=== PATIENT | female | born 1985 | race African-American/Black ===

== ENCOUNTER 2016-08-18 09:04 | Emergency (ER) | payer MEDICAID ==
--- NOTE | 2016-08-18 09:41 | ER Document Report ---
ED Medical Screen (RME) - General Chief Complaint: Abdominal Pain Stated Complaint: ABDOMINAL PAIN/VAGINAL BLEEDING Time Seen by Provider: 08/18/16 09:35 Notes: Patient is a 30-year-old female, LMP 07/28/16, with 4 days of RLQ pain and 3 weeks of heavy vaginal bleeding, soaking through about 12 pads a day. Right lower quadrant pain is constant in nature and is described as sharp. Denies nausea, vomiting, fevers, diarrhea, constipation or lightheadedness. PE: RLQ tenderness. Normal bowel sounds. RRR. CTAB. I have greeted and performed a rapid initial assessment of this patient. A comprehensive ED assessment and evaluation of the patient, analysis of test results and completion of the medical decision making process will be conducted by additional ED providers. TRAVEL OUTSIDE OF THE [place] IN LAST 30 DAYS: No - Related Data Allergies/Adverse Reactions: codeine phosphate [From Codeine Phosphate Soluble] Allergy (Intermediate, Verified 08/18/16 09:18) Hives penicillin V potassium [From Pen-Vee K] Allergy (Intermediate, Verified 09:18) Hives codeine [Codeine] Allergy (Unknown, Verified 08/18/16 09:18) Penicillins Allergy (Unknown, Verified 08/18/16 09:18) Past Medical History - Past Medical History Cardiac Medical History: Reports: Hx Hypertension Pulmonary Medical History: Reports: Hx Asthma, Hx Pneumonia Renal/ Medical History: Denies: Hx Peritoneal Dialysis - Immunizations Immunizations up to date: Yes Hx Diphtheria, Pertussis, Tetanus Vaccination: Yes Physical Exam - Vital signs Vitals: Temp Pulse Resp BP Pulse Ox 98.4 F 84 18 159/93 H 98 08/18/16 09:18 08/18/16 09:18 08/18/16 09:18 08/18/16 09:18 08/18/16 09:18 Course - Vital Signs Vital signs: Temp Pulse Resp BP Pulse Ox 98.4 F 84 18 159/93 H 98 08/18/16 09:18 08/18/16 09:18 08/18/16 09:18 08/18/16 09:18 08/18/16 09:18
[2016-08-18] MEDS ORDERED: KETOROLAC TROMETHAMINE INJ/PF 30 MG/1 ML SDV IV ONE (10:12)
[2016-08-18] MEDS ORDERED: KETOROLAC TROMETHAMINE 60 MG/2 ML SDV IM ONE (10:15)
--- NOTE | 2016-08-18 10:18 | ER Document Report ---
ED General - General Chief Complaint: Abdominal Pain Stated Complaint: ABDOMINAL PAIN/VAGINAL BLEEDING Time Seen by Provider: 08/18/16 09:35 Notes: This with 3 weeks of vaginal bleeding, daily, becoming heavier over the past few days and associated with clots. This is not happen before but she does have irregular periods. She is . No control. Sexually active. Associated with lower abdominal cramping right greater than left for also a couple of weeks. No fevers or chills. Yesterday she went through 12 pads. 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 TRAVEL OUTSIDE OF THE [place] IN LAST 30 DAYS: No - Related Data Allergies/Adverse Reactions: codeine phosphate [From Codeine Phosphate Soluble] Allergy (Intermediate, Verified 08/18/16 09:18) Hives penicillin V potassium [From Pen-Vee K] Allergy (Intermediate, Verified 09:18) Hives codeine [Codeine] Allergy (Unknown, Verified 08/18/16 09:18) Penicillins Allergy (Unknown, Verified 08/18/16 09:18) Past Medical History - Social History Smoking Status: Unknown if Ever Smoked Family History: Reviewed & Not Pertinent Patient has suicidal ideation: No Patient has homicidal ideation: No - Past Medical History Cardiac Medical History: Reports: Hx Hypertension Pulmonary Medical History: Reports: Hx Asthma, Hx Pneumonia Renal/ Medical History: Denies: Hx Peritoneal Dialysis - Immunizations Immunizations up to date: Yes Hx Diphtheria, Pertussis, Tetanus Vaccination: Yes Hx Pneumococcal Vaccination: 08/01/11 Review of Systems - Review of Systems Notes: GEN: Denies fever, chills, weight loss ENT: Denies sore throat, nasal discharge, ear pain EYES: Denies blurry vision, eye pain, discharge CV: Denies chest pain, palpitations, edema RESP: Denies cough, shortness of breath, wheezing GI: Denies, nausea, vomiting, diarrhea MSK: Denies joint pain/swelling, edema, SKIN: Denies rash, skin lesions LYMPH: Denies swollen glands/lymph nodes NEURO: Denies headache, focal weakness or numbness, dizziness PSYCH: Denies depression, suicidal or homicidal ideation Physical Exam - Vital signs Vitals: Temp Pulse Resp BP Pulse Ox 98.4 F 84 18 159/93 H 98 08/18/16 09:18 08/18/16 09:18 08/18/16 09:18 08/18/16 09:18 08/18/16 09:18 - Notes Notes: General: No acute distress, well-nourished. Obese. Head: Atraumatic, normocephalic ENT: Mouth normal, oropharynx moist, no exudates or tonsillar enlargement Eyes: Conjunctiva normal, pupils equal, lids normal Neck: No JVD, supple, no guarding CVS: Normal rate, regular rhythm, no murmurs Resp: No resp distress, equal and normal breath sounds bilaterally GI: Nondistended, soft, all right and left lower quadrants tenderness to palpation, no rebound or guarding Ext: No deformities, no edema, normal range of motion in upper and lower ext Skin: No rash, warm Lymphatic: No lymphadeopathy noted Neuro: Awake, alert. Face symmetric. Course - Re-evaluation Re-evalutation: 08/18/16 10:17 30-year-old obese female presents with heavy vaginal bleeding for 3 weeks with clots, normal vital signs, and a benign abdominal exam. Since she is not this is likely dysfunctional bleeding versus a hormone imbalance, but I do not believe she has critical anemia. We will get a CBC, treat her with Toradol, make sure she is not with urinalysis. 08/18/16 11:11 Patient is not significantly anemic. I will give her a single dose of Provera and asked her to take ibuprofen every 6 hours [id number]. She is stable for follow-up with her primary care provider. Given that she is not and the ultrasound would not change management analyst I do not believe it is indicated today in the emergency department. I have discussed with the patient there likely diagnosis, aftercare plan, follow-up plans and my usual and customary return precautions. They verbalized understanding of this. - Vital Signs Vital signs: Temp Pulse Resp BP Pulse Ox 98.4 F 84 18 159/93 H 98 08/18/16 09:18 08/18/16 09:18 08/18/16 09:18 08/18/16 09:18 08/18/16 09:18 - Laboratory Result Diagrams: 08/18/16 10:33 08/18/16 10:33 Laboratory results interpreted by me: 08/18/16 08/18/16 09:57 10:33 Hgb 10.0 L Hct 32.0 L MCV 70 L MCH 21.9 L MCHC 31.2 L RDW 17.4 H Urine Blood MODERATE H Discharge - Discharge Clinical Impression: Metrorrhagia Condition: Good Disposition: HOME, SELF-CARE Additional Instructions: We are not sure what is causing her vaginal bleeding but it is not causing you to be anemic. Please take ibuprofen 600 mg every 6 hours for both the pain and bleeding. Please follow-up with your family physician to inquire about hormone therapy as scheduled. Please return to the ER for dizziness weakness fainting or more than 1 pad per hour of bleeding during the day.
[2016-08-18 10:32] LABS: APPEARANCE,URINE CLEAR; BILIRUBIN,URINE NEGATIVE (NEGATIVE); GLUCOSE, URINE NEGATIVE (NEGATIVE); KETONES,URINE NEGATIVE (NEGATIVE); LEUKOCYTE ESTERASE,URINE NEGATIVE (NEGATIVE); NITRITE,URINE NEGATIVE (NEGATIVE); PROTEIN,URINE NEGATIVE (NEGATIVE); URINE SPECIFIC GRAVITY 1.002; UROBILINOGEN,URINE NEGATIVE mg/dL (<2.0)
[2016-08-18] MEDS ORDERED: MEDROXYPROGESTERONE ACET 10 MG TABLET PO ONE (10:40)
[2016-08-18 10:53] LABS: ABSOLUTE EOSINOPHILS # (AUTO) 0.2 10^3/uL (0.0-0.6); ABSOLUTE LYMPHOCYTES (AUTO) 2.7 10^3/uL (0.5-4.7); ABSOLUTE MONOCYTES (AUTO) 0.5 10^3/uL (0.1-1.4); ABSOLUTE NEUT (AUTO) 3.9 10^3/uL (1.7-8.2); BASOPHILS % (AUTO) 0.6 % (0-2); EOSINOPHILS % (AUTO) 2.9 % (0-6); LYMPHOCYTES % (AUTO) 36.6 % (13-45); MEAN CORPUSCULAR HEMOGLOBIN 21.9 pg (27.0-33.4); MEAN CORPUSCULAR HGB CONC 31.2 g/dL (32.0-36.0); MEAN CORPUSCULAR VOLUME 70 fl (80-97); MONOCYTES % (AUTO) 6.5 % (3-13); RED BLOOD COUNT 4.57 10^6/uL (3.72-5.28); RED CELL DISTRIBUTION WIDTH 17.4 % (11.5-14.0); SEGMENTED NEUTROPHILS % (AUTO) 53.4 % (42-78); WHITE BLOOD COUNT 7.3 10^3/uL (4.0-10.5)
[2016-08-18 11:10] LABS: ALANINE AMINOTRANSFERASE 40 U/L (9-52); ALKALINE PHOSPHATASE 149 U/L (38-126); ANION GAP 12 (5-19); ASPARTATE AMINO TRANSFERASE 21 U/L (14-36); BILIRUBIN,DIRECT 0.3 mg/dL (0.0-0.4); BILIRUBIN,TOTAL 0.4 mg/dL (0.2-1.3); BLOOD UREA NITROGEN 9 mg/dL (7-20); CALCIUM 9.7 mg/dL (8.4-10.2); CARBON DIOXIDE 26 mmol/L (22-30); CHLORIDE 101 mmol/L (98-107); CREATININE RESULT 0.69 mg/dL (0.52-1.25); GLUCOSE 122 mg/dL (75-110); POTASSIUM 3.6 mmol/L (3.6-5.0); SODIUM 138.9 mmol/L (137-145); TOTAL PROTEIN 7.8 g/dL (6.3-8.2)
[2016-08-18 11:40] VITALS: BP 146/98
== END 2016-08-18 11:33 | disposition home or self-care (01) ==
LOC: ER 09:04
DX: N92.1 Excessive and frequent menstruation with irregular cycle (principal); R10.30 Lower abdominal pain, unspecified; I10 Essential (primary) hypertension; E66.9 Obesity, unspecified; Z68.41 Body mass index [BMI] 40.0-44.9, adult; Z88.0 Allergy status to penicillin
CPT/HCPCS: 99284; 96372; 36415; 85025; 81025; 80053; 81001; J1885; J3490

== ENCOUNTER → 2017-03-29 | Outpatient (CLI) | payer MEDICAID ==
[2017-03-29 18:49] LABS: ABSOLUTE EOSINOPHILS # (AUTO) 0.2 10^3/uL (0.0-0.6); ABSOLUTE LYMPHOCYTES (AUTO) 2.7 10^3/uL (0.5-4.7); ABSOLUTE MONOCYTES (AUTO) 0.5 10^3/uL (0.1-1.4); ABSOLUTE NEUT (AUTO) 3.1 10^3/uL (1.7-8.2); BASOPHILS % (AUTO) 0.4 % (0-2); EOSINOPHILS % (AUTO) 3.3 % (0-6); HEMATOCRIT 33.6 % (36.0-47.0); HEMOGLOBIN 10.7 g/dL (12.0-15.5); MEAN CORPUSCULAR HEMOGLOBIN 21.3 pg (27.0-33.4); MEAN CORPUSCULAR HGB CONC 31.8 g/dL (32.0-36.0); MEAN CORPUSCULAR VOLUME 67 fl (80-97); MONOCYTES % (AUTO) 7.9 % (3-13); PLATELET COUNT 340 10^3/uL (150-450); RED BLOOD COUNT 5.01 10^6/uL (3.72-5.28); RED CELL DISTRIBUTION WIDTH 18.7 % (11.5-14.0); SEGMENTED NEUTROPHILS % (AUTO) 47.4 % (42-78); TOTAL CELLS COUNTED % (AUTO) 100 %; WHITE BLOOD COUNT 6.6 10^3/uL (4.0-10.5)
[2017-03-29 19:00] LABS: ALANINE AMINOTRANSFERASE 45 U/L (9-52); ALBUMIN 4.3 g/dL (3.5-5.0); ALKALINE PHOSPHATASE 106 U/L (38-126); ANION GAP 13 (5-19); ASPARTATE AMINO TRANSFERASE 34 U/L (14-36); BILIRUBIN,DIRECT 0.1 mg/dL (0.0-0.4); BILIRUBIN,TOTAL 0.2 mg/dL (0.2-1.3); BLOOD UREA NITROGEN 8 mg/dL (7-20); CALCIUM 9.8 mg/dL (8.4-10.2); CARBON DIOXIDE 27 mmol/L (22-30); CHLORIDE 102 mmol/L (98-107); GLUCOSE 88 mg/dL (75-110); POTASSIUM 3.4 mmol/L (3.6-5.0); SODIUM 141.6 mmol/L (137-145); TOTAL PROTEIN 7.4 g/dL (6.3-8.2)
--- NOTE | 2017-03-29 22:50 | EKG REPORT ---
SEVERITY:- NORMAL ECG - SINUS RHYTHM : Confirmed by: Candida Stephens 29-Mar-2017 22:49:22
== END ==
LOC: OD 16:43
PROVIDERS: ATTEND Nurse Practitioner Family
DX: R00.2 Palpitations (principal); E66.01 Morbid (severe) obesity due to excess calories
CPT/HCPCS: 36415; 80053; 83036; 84443; 85025; 93005; 93010

== ENCOUNTER 2017-09-20 18:48 | Emergency (ER) | payer MEDICAID ==
--- NOTE | 2017-09-20 20:26 | ER Document Report ---
ED General - General Chief Complaint: High Blood Pressure Stated Complaint: BLOOD PRESSURE PROBLEM Time Seen by Provider: 09/20/17 20:24 Mode of Arrival: Ambulatory Information source: Patient Notes: 31-year-old female with hypertension, heavy menstrual bleeding presents with complaint of elevated blood pressure and lightheadedness that occurred just prior to arrival. Patient states that her boss became concerned because the patient was sleepy. She insisted on taking the patient's blood pressure and at that time patient had a blood pressure reading of 212/184. Patient admits to being compliant with her blood pressure medication. She states she was sleepy because she has worked 7 days straight. She denies any headache, visual changes , chest pain, shortness of breath, abdominal pain. Patient does state that she has had heavy menstrual bleeding for approximately 1 month and was recently put on control. She states that she was told by her physician that this could cause an elevation in her blood pressure. TRAVEL OUTSIDE OF THE [place] IN LAST 30 DAYS: No - HPI Onset: Just prior to arrival Onset/Duration: Sudden Quality of pain: No pain Severity: None Associated symptoms: Other - lightheaded Exacerbated by: Denies Relieved by: Denies Similar symptoms previously: No Recently seen / treated by doctor: No - Related Data Allergies/Adverse Reactions: codeine phosphate [From Codeine Phosphate Soluble] Allergy (Intermediate, Verified 08/18/16 09:18) Hives penicillin V potassium [From Pen-Vee K] Allergy (Intermediate, Verified 09:18) Hives codeine [Codeine] Allergy (Unknown, Verified 08/18/16 09:18) Penicillins Allergy (Unknown, Verified 08/18/16 09:18) Past Medical History - General Information source: Patient, [facility] Records - Social History Smoking Status: Current Some Day Smoker Cigarette use (# per day): Yes - 1-2 /year Smoking Education Provided: Yes Frequency of alcohol use: Occasional Drug Abuse: None Lives with: Family, Spouse/Significant other Family History: Reviewed & Not Pertinent Patient has suicidal ideation: No Patient has homicidal ideation: No - Past Medical History Cardiac Medical History: Reports: Hx Hypertension Pulmonary Medical History: Reports: Hx Asthma, Hx Pneumonia Renal/ Medical History: Denies: Hx Peritoneal Dialysis - Immunizations Immunizations up to date: Yes Hx Diphtheria, Pertussis, Tetanus Vaccination: Yes Hx Pneumococcal Vaccination: 08/01/11 Review of Systems - Review of Systems Notes: REVIEW OF SYSTEMS: CONSTITUTIONAL : Denies fever, chills, or sweats. Denies recent illness. Denies weight loss, recent hospitalizations. EENT: Denies visual changes, eye pain. Denies nasal or sinus congestion or discharge. Denies sore throat, oral lesions, difficulty swallowing. CARDIOVASCULAR: Denies chest pain. Denies palpitations. Denies lower extremity edema. RESPIRATORY: Denies cough, cold, or chest congestion. Denies shortness of breath, wheezing. GASTROINTESTINAL: Denies abdominal pain or distention. Denies nausea, vomiting , or diarrhea. Denies blood in vomitus, stools, or per rectum. Denies black, tarry stools. Denies constipation. GENITOURINARY: Denies difficulty urinating, painful urination, frequency, blood in urine, or vaginal discharge. MUSCULOSKELETAL: Denies back or neck pain or stiffness. Denies joint pain or swelling. SKIN: Denies rash, lesions or sores. HEMATOLOGIC : Denies easy bruising or bleeding. LYMPHATIC: Denies swollen glands. NEUROLOGICAL: Denies confusion or altered mental status. Denies passing out or loss of consciousness. Denies dizziness. Denies headache. Denies weakness or paralysis. Denies problems difficulty with ambulation, slurred speech. Denies sensory loss, numbness, or tingling. Denies seizures. PSYCHIATRIC: Denies anxiety or stress. Denies depression, suicidal ideation, or homicidal ideation. Denies visual or auditory hallucinations. Physical Exam - Vital signs Vitals: Temp Pulse Resp BP Pulse Ox 99.4 F 93 20 140/84 H 97 09/20/17 19:08 09/20/17 19:08 09/20/17 19:08 09/20/17 19:08 09/20/17 19:08 - Notes Notes: PHYSICAL EXAMINATION: GENERAL: Well-appearing, well-nourished and in no acute distress. HEAD: Atraumatic, normocephalic. EYES: Pupils equal round and reactive to light, extraocular movements intact, conjunctiva are normal. ENT: Nares patent, oropharynx clear without exudates. Moist mucous membranes. NECK: Normal range of motion, supple without lymphadenopathy LUNGS: Breath sounds clear to auscultation bilaterally and equal. No wheezes rales or rhonchi. HEART: Regular rate and rhythm without murmurs ABDOMEN: Soft, nontender, nondistended abdomen. No guarding, no rebound. No masses appreciated. Female : deferred Musculoskeletal: Normal range of motion, no pitting or edema. No cyanosis. NEUROLOGICAL: Cranial nerves grossly intact. Normal speech, normal gait. Normal sensory, motor exams PSYCH: Normal mood, normal affect. SKIN: Warm, Dry, normal turgor, no rashes or lesions noted. Course - Re-evaluation Re-evalutation: 09/20/17 23:19 31-year-old female with history of hypertension presents with concern for elevated blood pressure reading prior to arrival. Patient states that at work her blood pressure was 212/184. Without intervention upon arrival patient's blood pressure was 140/84. She does have a history of high blood pressure and takes hydrochlorothiazide which she states she has been compliant with. She does report some lightheadedness which is now resolved. She currently has no complaints. I did discuss blood work and imaging with the patient who is declining at this time. Patient has an upcoming appointment with her primary care physician tomorrow. Patient provided the opportunity to ask questions, and express concerns. Discharge instructions discussed. Patient is agreeable with discharge home. Return indications explained and discussed with the patient who displays understanding. Patient encouraged to return to the emergency department immediately with any concerns. - Vital Signs Vital signs: Temp Pulse Resp BP Pulse Ox 98.5 F 93 13 134/96 H 98 09/20/17 20:42 09/20/17 20:42 09/20/17 20:42 09/20/17 20:42 09/20/17 20:42 Discharge - Discharge Clinical Impression: History of heavy vaginal bleeding, Lightheadedness Hypertension Qualifiers: Hypertension type: unspecified Qualified Code(s): I10 - Essential (primary) hypertension Condition: Good Disposition: HOME, SELF-CARE Instructions: Dizziness ([facility]), High Blood Pressure ([facility]), Hydrochlorothiazide ( [facility]) Additional Instructions: Please follow-up with your primary care physician tomorrow as we discussed. Please return to the emergency department with any concerns. Referrals: JERILYN HOLLOWAY RESAWYER [Primary Care Provider] - Follow up as needed
[2017-09-20 20:44] VITALS: BP 134/96
== END 2017-09-20 20:46 | disposition home or self-care (01) ==
LOC: ER 18:48
DX: R42 Dizziness and giddiness (principal); N93.8 Other specified abnormal uterine and vaginal bleeding; I10 Essential (primary) hypertension; F17.210 Nicotine dependence, cigarettes, uncomplicated; Z88.0 Allergy status to penicillin; Z88.6 Allergy status to analgesic agent
CPT/HCPCS: 99283

== ENCOUNTER 2018-03-20 12:56 | Emergency (ER) | payer MEDICAID ==
[2018-03-20 13:52] LABS: APPEARANCE,URINE SLIGHTLY-CLOUDY; BILIRUBIN,URINE NEGATIVE (NEGATIVE); COLOR,URINE YELLOW; GLUCOSE, URINE NEGATIVE (NEGATIVE); KETONES,URINE TRACE mg/dL (NEGATIVE); LEUKOCYTE ESTERASE,URINE NEGATIVE (NEGATIVE); NITRITE,URINE NEGATIVE (NEGATIVE); PROTEIN,URINE 30 mg/dL (NEGATIVE); URINE SPECIFIC GRAVITY 1.025
--- NOTE | 2018-03-20 14:33 | ER Document Report ---
ED GI/ - General Chief Complaint: Urinary Frequency Stated Complaint: URINATION ISSUE Time Seen by Provider: 03/20/18 14:23 Primary Care Provider: JERILYN HOLLOWAY NP [NO LOCAL MD] - Follow up as needed Mode of Arrival: Ambulatory Information source: Patient, [facility] Records, Outside Facility Records Notes: This 32-year-old female patient comes emergency room complaining of urinary frequency suprapubic pressure. She is 16 weeks . She also complains of her left ear being stopped up. She was described azithromycin on 03/08/2018. TRAVEL OUTSIDE OF THE [place] IN LAST 30 DAYS: No - Related Data Allergies/Adverse Reactions: codeine phosphate [From Codeine Phosphate Soluble] Allergy (Intermediate, Verified 08/18/16 09:18) Hives penicillin V potassium [From Pen-Vee K] Allergy (Intermediate, Verified 08/18/16 09:18) Hives codeine [Codeine] Allergy (Unknown, Verified 08/18/16 09:18) Penicillins Allergy (Unknown, Verified 08/18/16 09:18) Past Medical History - General Information source: Patient, [facility] Records, Outside Facility Records - Social History Smoking Status: Former Smoker Cigarette use (# per day): No Chew tobacco use (# tins/day): No Smoking Education Provided: No Frequency of alcohol use: None Lives with: Spouse/Significant other Family History: Reviewed & Not Pertinent - Past Medical History Cardiac Medical History: Reports: Hx Hypertension Pulmonary Medical History: Reports: Hx Asthma, Hx Pneumonia - Immunizations Immunizations up to date: Yes Hx Diphtheria, Pertussis, Tetanus Vaccination: Yes Hx Pneumococcal Vaccination: 08/01/11 Review of Systems - Review of Systems Constitutional: No symptoms reported EENT: Ear pain Cardiovascular: No symptoms reported Respiratory: No symptoms reported Gastrointestinal: No symptoms reported Genitourinary: See HPI, Frequency Female Genitourinary: - 16 weeks Musculoskeletal: No symptoms reported Skin: No symptoms reported Hematologic/Lymphatic: No symptoms reported Neurological/Psychological: No symptoms reported Physical Exam - Vital signs Vitals: Temp Pulse Resp BP Pulse Ox 98.4 F 115 H 17 146/90 H 97 03/20/18 13:15 03/20/18 13:15 03/20/18 13:15 03/20/18 13:15 03/20/18 13:15 Interpretation: Hypertensive - General General appearance: Appears well, Alert In distress: None - HEENT Head: Normocephalic, Atraumatic Eyes: Normal Pupils: PERRL External canal: Normal Tympanic membrane: Other - Right TM is a little retracted. Left TM is bulging and red with some fluid and bulging noted in the pars flaccida. Mouth/Lips: Normal Mucous membranes: Normal Pharynx: Normal Neck: Normal - Respiratory Respiratory status: No respiratory distress Breath sounds: Normal - Cardiovascular Rhythm: Regular Heart sounds: Normal auscultation Murmur: No - Abdominal Inspection: Gravid female Tenderness: Other - There is minimal suprapubic tenderness - Back Back: Normal - Extremities General upper extremity: Normal inspection General lower extremity: Normal inspection - Neurological Neuro grossly intact: Yes - Psychological Associated symptoms: Normal affect, Normal mood - Skin Skin Temperature: Warm Skin Moisture: Dry Skin Color: Normal Course - Re-evaluation Re-evalutation: 03/20/18 22:01 The examination of the left TM shows clear explanation for her symptoms of the ear feeling stopped up and uncomfortable. The urine does not suggest infection, however it will be cultured. - Vital Signs Vital signs: Temp Pulse Resp BP Pulse Ox 98.5 F 97 16 129/75 H 100 03/20/18 14:33 03/20/18 14:33 03/20/18 14:33 03/20/18 14:33 03/20/18 14:33 - Laboratory Laboratory results interpreted by me: 03/20/18 13:01 Urine Protein 30 H Urine Ketones TRACE H Urine Urobilinogen 2.0 H Urine HCG, Qual POSITIVE H Discharge - Discharge Clinical Impression: Left otitis media with effusion, Suprapubic pressure, with 16 completed weeks gestation, Urinary frequency Condition: Stable Disposition: HOME, SELF-CARE Additional Instructions: Otitis Media: You have a middle ear infection (otitis media). This is usually a complication of a cold or sore throat. The middle ear cavity becomes filled with infection. Pressure and stretching of the ear drum cause pain. Antibiotics are required. A decongestant may be recommended if you have a "runny nose." You may need anesthetic drops or other pain medication. A follow-up exam may be recommended to make sure the infection has completely cleared. If the ear begins to drain, it means the ear drum has ruptured. This will usually heal spontaneously. However, it means you should keep the ear dry until re-examined by a doctor. Call the physician or return for examination at once if there is severe headache, stiff neck, confusion, increasing fever, or dizziness. You should improve significantly within two days. If you're not better, call the doctor. Your examination shows you have fluid behind your left eardrum causing it to bulge outwardly. Try taking Sudafed and Benadryl for the congestion symptoms. If the Sudafed causes your blood pressure to go up, then stop taking it. Try using Afrin nose spray as directed to see if it will help the eustachian tube to open up and release the pressure behind the eardrum. Your urine will be cultured to see if there is any infection. Be sure you drink plenty of fluids and get plenty of rest. 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 I have greeted and performed a rapid initial assessment of this patient. A comprehensive ED assessment and evaluation of the patient, analysis of test results and completion of the medical decision making process will be conducted by additional ED providers. Prescriptions: Cephalexin Monohydrate [Keflex 500 mg Capsule] 500 mg PO QID #28 capsule Referrals: JERILYN HOLLOWAY NP [NO LOCAL MD] - Follow up as needed
[2018-03-20 14:34] VITALS: BP 129/75
== END 2018-03-20 14:39 | disposition home or self-care (01) ==
LOC: ER 12:56
DX: O26.92 Pregnancy related conditions, unspecified, second trimester (principal); R35.0 Frequency of micturition; R10.2 Pelvic and perineal pain; Z3A.16 16 weeks gestation of pregnancy; H65.92 Unspecified nonsuppurative otitis media, left ear; Z88.0 Allergy status to penicillin; Z88.6 Allergy status to analgesic agent
CPT/HCPCS: 81001; 81025; 87086; 87088; 99283

== ENCOUNTER → 2018-03-29 | Outpatient (CLI) | payer MEDICAID | LOC: OD 15:44 | PROVIDERS: ATTEND Obstetrics & Gynecology | DX: Z36.89 Encounter for other specified antenatal screening (principal) | CPT/HCPCS: 36415; 82105; 82677; 84702; 86336 ==

== ENCOUNTER 2018-04-11 08:03 | Emergency (ER) | payer MEDICAID ==
[2018-04-11] MEDS ORDERED: ASPIRIN 81 MG TABLET, CHEWABLE PO ONE (08:56)
--- NOTE | 2018-04-11 09:00 | ER Document Report ---
ED General - General Chief Complaint: Abdominal Pain Stated Complaint: ABDOMINAL PAIN Time Seen by Provider: 04/11/18 08:35 Primary Care Provider: WILLA OCHOA CNM [Primary Care Provider] - Follow up as needed Notes: 32-year-old female presents to the emergency department complaining of some right lower abdominal pain. States she feels a lump in her belly near her uterus. She has been told she had a fibroid uterus in the past. She denies any nausea vomiting denies fever chills denies vaginal bleeding or discharge denies dysuria hematuria increased urinary frequency. She rates pain is mild. Nothing really makes it better or worse. The patient is 18 weeks . She just wanted to be rechecked. Denies any falls or trauma. TRAVEL OUTSIDE OF THE [place] IN LAST 30 DAYS: No - Related Data Allergies/Adverse Reactions: codeine phosphate [From Codeine Phosphate Soluble] Allergy (Intermediate, Verified 08/18/16 09:18) Hives penicillin V potassium [From Pen-Vee K] Allergy (Intermediate, Verified 08/18/16 09:18) Hives codeine [Codeine] Allergy (Unknown, Verified 08/18/16 09:18) Penicillins Allergy (Unknown, Verified 08/18/16 09:18) Past Medical History - Social History Smoking Status: Former Smoker Family History: Reviewed & Not Pertinent Patient has suicidal ideation: No Patient has homicidal ideation: No - Past Medical History Cardiac Medical History: Reports: Hx Hypertension Pulmonary Medical History: Reports: Hx Asthma, Hx Pneumonia Renal/ Medical History: Denies: Hx Peritoneal Dialysis - Immunizations Immunizations up to date: Yes Hx Diphtheria, Pertussis, Tetanus Vaccination: Yes Hx Pneumococcal Vaccination: 08/01/11 Review of Systems - Review of Systems Constitutional: denies: Chills, Fever Gastrointestinal: Abdominal pain. denies: Abdomen distended, Diarrhea, Nausea, Vomiting Neurological/Psychological: denies: Headaches -: Yes All other systems reviewed and negative Physical Exam - Vital signs Vitals: Temp Pulse Resp BP Pulse Ox 98.1 F 87 18 148/93 H 100 04/11/18 08:09 04/11/18 08:09 04/11/18 08:09 04/11/18 08:09 04/11/18 08:09 - Notes Notes: GENERAL_APPEARANCE: well_nourished but overweight, alert, cooperative, no_acute_distress, no_obvious_discomfort. VITALS: reviewed, see vital signs table. HEAD: no_swelling\tenderness on the head. EYES: conjunctiva_clear. NOSE: no_nasal_discharge. MOUTH: (-)decreased moisture. THROAT: no_tonsilar_inflammation, no_airway_obstruction. no_lymphadenopathy NECK: supple, no_neck_tenderness, (-)thyromegaly. BACK: no_back_tenderness. CHEST_WALL: no_chest_tenderness. LUNGS: no_wheezing, no_rales, no_rhonchi, (-)accessory muscle use, good air exchange bilateral. HEART: normal_rate, normal_rhythm, normal_S1, normal_S2, (-)S3, (-)S4, no_murmur, no_rub. ABDOMEN: normal_BS, soft, no_abd_tenderness, (-)guarding, (-)rebound, no_organomegaly, uterus is just below the umbilicus is where the patient states she is feeling a lump. I cannot appreciate any specific mass EXTREMITIES: His edema SKIN: warm, dry, good_color, no_rash. MENTAL_STATUS: speech_clear, oriented_X_3, normal_affect, responds_appropriately to questions. Course - Re-evaluation Re-evalutation: 04/11/18 09:00 32-year-old female with some mild abdominal discomfort 18 weeks . We will check a urine some generalized blood work. I really cannot feel any lumps or subcutaneous abnormalities. I can feel her uterus so not sure if this is what she is going to. We will get an ultrasound check to make sure baby is fine otherwise patient is having no bleeding or discharge. 04/11/18 11:51 There is a live IUP and a uterine fibroid. 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 I spoke with her about using vitamins. 04/11/18 11:52 Urine had several white cells in it but nothing that I would consider a UTI at this time more so contamination than anything. - Vital Signs Vital signs: Temp Pulse Resp BP Pulse Ox 98.1 F 87 18 148/93 H 100 04/11/18 08:09 04/11/18 08:09 04/11/18 08:09 04/11/18 08:09 04/11/18 08:09 - Laboratory Result Diagrams: 04/11/18 09:00 04/11/18 09:00 Laboratory results interpreted by me: 04/11/18 04/11/18 04/11/18 09:00 09:00 09:00 Hgb 9.2 L Hct 29.8 L MCV 67 L MCH 20.7 L MCHC 30.8 L RDW 22.2 H Chloride 109 H Carbon Dioxide 18 L BUN 4 L Creatinine 0.38 L Glucose 149 H Serum HCG, Qual Ur Leukocyte Esterase MODERATE H 04/11/18 09:00 Hgb Hct MCV MCH MCHC RDW Chloride Carbon Dioxide BUN Creatinine Glucose Serum HCG, Qual POSITIVE H Ur Leukocyte Esterase - Diagnostic Test Radiology reviewed: Reports reviewed Radiology results interpreted by me: 04/11/18 11:51 Obstetrics Ultrasound 04/11/18 08:58 IMPRESSION: LIVING INTRAUTERINE . ESTIMATED GESTATIONAL AGE 16 WEEK 5 DAY. NO VISUALIZED ANOMALIES. POSSIBLE POSTERIOR FIBROID VERSUS UTERINE CONTRACTION. Trimester of : Second trimester - 13 weeks 1 day to 27 weeks 6 days. Discharge - Discharge Clinical Impression: Threatened Uterine fibroid Qualifiers: Uterine leiomyoma location: unspecified location Qualified Code(s): D25.9 - Leiomyoma of uterus, unspecified Condition: Good Disposition: HOME, SELF-CARE Instructions: Threatened Miscarriage (OM) Referrals: WILLA OCHOA CNM [Primary Care Provider] - Follow up as needed
[2018-04-11 09:24] LABS: ABSOLUTE EOSINOPHILS # (AUTO) 0.1 10^3/uL (0.0-0.6); ABSOLUTE LYMPHOCYTES (AUTO) 1.6 10^3/uL (0.5-4.7); ABSOLUTE MONOCYTES (AUTO) 0.5 10^3/uL (0.1-1.4); ABSOLUTE NEUT (AUTO) 5.8 10^3/uL (1.7-8.2); BASOPHILS % (AUTO) 0.5 % (0-2); EOSINOPHILS % (AUTO) 1.7 % (0-6); HEMATOCRIT 29.8 % (36.0-47.0); HEMOGLOBIN 9.2 g/dL (12.0-15.5); LYMPHOCYTES % (AUTO) 20.2 % (13-45); MEAN CORPUSCULAR HEMOGLOBIN 20.7 pg (27.0-33.4); MEAN CORPUSCULAR HGB CONC 30.8 g/dL (32.0-36.0); MEAN CORPUSCULAR VOLUME 67 fl (80-97); MONOCYTES % (AUTO) 6.1 % (3-13); PLATELET COUNT 294 10^3/uL (150-450); RED BLOOD COUNT 4.43 10^6/uL (3.72-5.28); RED CELL DISTRIBUTION WIDTH 22.2 % (11.5-14.0); SEGMENTED NEUTROPHILS % (AUTO) 71.5 % (42-78); TOTAL CELLS COUNTED % (AUTO) 100 %; WHITE BLOOD COUNT 8.1 10^3/uL (4.0-10.5)
[2018-04-11 09:32] LABS: APPEARANCE,URINE CLOUDY; BILIRUBIN,URINE NEGATIVE (NEGATIVE); COLOR,URINE YELLOW; GLUCOSE, URINE NEGATIVE (NEGATIVE); KETONES,URINE NEGATIVE (NEGATIVE); LEUKOCYTE ESTERASE,URINE MODERATE (NEGATIVE); NITRITE,URINE NEGATIVE (NEGATIVE); PROTEIN,URINE NEGATIVE (NEGATIVE); URINE SPECIFIC GRAVITY 1.017; UROBILINOGEN,URINE NEGATIVE mg/dL (<2.0)
[2018-04-11 09:41] LABS: ALANINE AMINOTRANSFERASE 28 U/L (9-52); ALBUMIN 3.6 g/dL (3.5-5.0); ALKALINE PHOSPHATASE 73 U/L (38-126); ANION GAP 11 (5-19); ASPARTATE AMINO TRANSFERASE 17 U/L (14-36); BILIRUBIN,DIRECT 0.1 mg/dL (0.0-0.4); BILIRUBIN,TOTAL 0.2 mg/dL (0.2-1.3); BLOOD UREA NITROGEN 4 mg/dL (7-20); CALCIUM 9.4 mg/dL (8.4-10.2); CARBON DIOXIDE 18 mmol/L (22-30); CHLORIDE 109 mmol/L (98-107); GLUCOSE 149 mg/dL (75-110); SODIUM 138.1 mmol/L (137-145); TOTAL PROTEIN 6.5 g/dL (6.3-8.2)
--- NOTE | 2018-04-11 10:15 | RADIOLOGY REPORT (SQ) ---
EXAM DESCRIPTION: U/S OB 14+ TRNABD 1GES W/O DOP COMPLETED DATE/TIME: 04/11/2018 10:04 am REASON FOR STUDY: abd pain COMPARISON: None. TECHNIQUE: Static and Dynamic grayscale imaging performed of gravid uterus using transabdominal appr oac. Additional selected color Doppler and spectral images recorded. All stored on PACS. LIMITATIONS: None. FINDINGS: FETUSES SEEN:1 EGA: 16 week 5 day. Calculated using BPD,FL,HC,AC documented on images. No discrepancy with clinical dates. RENETTA: 09/21/2018. EFW: 170 grams PERCENTILE: Not applicable. Fetus less than or equal to 20 weeks gestation. EDWARD: Largest pocket 3.2 cm. PLACENTA: Posterior. GRADE: I PRESENTATION: Variable. ANATOMY: HEART RATE: 162 beats per minute. FOUR CHAMBER HEART: Visualized. THREE VESSEL CORD: Yes. CORD INSERTION: Not visualized. KIDNEYS AND BLADDER: Not visualized. STOMACH: Visualized. Appears normal. SPINE: Normal as visualized. BRAIN AND LATERAL VENTRICLES: Normal brain as visualized. OTHER: No other significant finding. MATERNAL ADNEXA: Maternal ovaries not visualized. CERVICAL LENGTH: 3.4 cm. Closed. OTHER: Possible posterior fibroid, measuring 5.3 x 6.3 cm. IMPRESSION: LIVING INTRAUTERINE . ESTIMATED GESTATIONAL AGE 16 WEEK 5 DAY. NO VISUALIZED ANOMALIES. POSSIBLE POSTERIOR FIBROID VERSUS UTERINE CONTRACTION. Trimester of : Second trimester - 13 weeks 1 day to 27 weeks 6 days. TECHNICAL DOCUMENTATION: JOB ID: [id number] [employer]- All Rights Reserved Reading location - IP/workstation name: [email or web address]
[2018-04-11 12:08] VITALS: BP 141/79
== END 2018-04-11 11:56 | disposition home or self-care (01) ==
LOC: ER 08:03
DX: O20.0 Threatened abortion (principal); O34.12 Maternal care for benign tumor of corpus uteri, second trimester; D25.9 Leiomyoma of uterus, unspecified; R10.31 Right lower quadrant pain; Z3A.16 16 weeks gestation of pregnancy; Z88.6 Allergy status to analgesic agent; Z88.0 Allergy status to penicillin
CPT/HCPCS: 36415; 76805; 80053; 81001; 84703; 85025; 99284

== ENCOUNTER 2018-05-25 11:31 | Outpatient (CLI) | payer MEDICAID ==
[2018-05-25 12:48] LABS: APPEARANCE,URINE CLOUDY; BILIRUBIN,URINE NEGATIVE (NEGATIVE); COLOR,URINE YELLOW; GLUCOSE, URINE NEGATIVE (NEGATIVE); KETONES,URINE NEGATIVE (NEGATIVE); LEUKOCYTE ESTERASE,URINE MODERATE (NEGATIVE); NITRITE,URINE NEGATIVE (NEGATIVE); PROTEIN,URINE 30 mg/dL (NEGATIVE); URINE SPECIFIC GRAVITY 1.023
[2018-05-25 12:58] LABS: URINE AMPHETAMINES SCREEN NEGATIVE; URINE BARBITURATES SCREEN NEGATIVE; URINE BENZODIAZEPINES SCREEN NEGATIVE; URINE COCAINE SCREEN NEGATIVE; URINE MARIJUANA (THC) SCREEN NEGATIVE; URINE METHADONE SCREEN NEGATIVE; URINE PHENCYCLIDINE SCREEN NEGATIVE
== END 2018-05-25 13:39 | disposition home or self-care (01) ==
LOC: LC 11:31
PROVIDERS: ATTEND Obstetrics & Gynecology Gynecology
PROC: 4A1HXCZ Monitoring of Products of Conception, Cardiac Rate, External Approach (ICD-10-PCS; principal; 2018-05-25)
DX: O99.282 Endocrine, nutritional and metabolic diseases complicating pregnancy, second trimester (principal); E86.0 Dehydration; Z3A.24 24 weeks gestation of pregnancy
CPT/HCPCS: 80307; 81001; 82962

== ENCOUNTER → 2018-07-05 | Outpatient (CLI) | payer MEDICAID | LOC: OD 17:02 | PROVIDERS: ATTEND Obstetrics & Gynecology | DX: Z34.83 Encounter for supervision of other normal pregnancy, third trimester (principal); Z11.59 Encounter for screening for other viral diseases; Z11.3 Encounter for screening for infections with a predominantly sexual mode of transmission; Z11.4 Encounter for screening for human immunodeficiency virus [HIV] | CPT/HCPCS: 36415; 86592; 86701 ==

== ENCOUNTER 2018-08-29 12:37 | Outpatient (CLI) | payer MEDICAID ==
[2018-08-29 14:04] LABS: COLOR,URINE STRAW
[2018-08-29 14:05] LABS: APPEARANCE,URINE HAZY; BILIRUBIN,URINE NEGATIVE (NEGATIVE); GLUCOSE, URINE NEGATIVE (NEGATIVE); KETONES,URINE NEGATIVE (NEGATIVE); LEUKOCYTE ESTERASE,URINE LARGE (NEGATIVE); NITRITE,URINE NEGATIVE (NEGATIVE); PROTEIN,URINE NEGATIVE (NEGATIVE); UROBILINOGEN,URINE NEGATIVE mg/dL (<2.0)
[2018-08-29 14:08] LABS: URINE AMPHETAMINES SCREEN NEGATIVE; URINE BARBITURATES SCREEN NEGATIVE; URINE BENZODIAZEPINES SCREEN NEGATIVE; URINE COCAINE SCREEN NEGATIVE; URINE MARIJUANA (THC) SCREEN NEGATIVE; URINE METHADONE SCREEN NEGATIVE; URINE PHENCYCLIDINE SCREEN NEGATIVE
--- NOTE | 2018-08-29 15:04 | Non Stress Test Report ---
Non Stress Test Datetime Report Generated by CPN: 08/29/2018 15:04 DEMOGRAPHIC EGA NST: 37.6 INDICATION Indication for Study: Other Indication for Study (NST) Other: LABOR CHECK MONITORING Monitor Explained: Monitor Explained; Test Explained; Patient Verbalized Understanding Time on Monitor: 08/29/2018 12:56 Time off Monitor: 08/29/2018 14:17 NST Duration: 81 NST INTERVENTIONS NST Interventions: PO Hydration; Reposition Patient Physician Notified NST: N AUSTIN, CNM REVIEWED STRIP BABY A: [id number] BABY A Movement : Present Contraction Frequency : IRREG FHR Baseline : 135 Accelerations : 15X15 Decelerations : None Variability : Moderate 6-25bpm NST Review: Meets Criteria for Reactive NST NST Review and Verified By : RADHA Cortez Results: Reactive NST REPORT Report Trigger: Send Report
== END 2018-08-29 14:37 | disposition home or self-care (01) ==
LOC: LC 12:37
PROVIDERS: ATTEND Obstetrics & Gynecology
DX: O47.1 False labor at or after 37 completed weeks of gestation (principal)
CPT/HCPCS: 59025; 80307; 81005

== ENCOUNTER 2018-09-07 08:06 | Inpatient (IN) | payer MEDICAID ==
[2018-09-07] MEDS ORDERED: LABETALOL HCL 200 MG TABLET ONE ×2 (08:38→22:46)
[2018-09-07] MEDS ORDERED: OXYTOCIN/NORMAL SALINE 0 UNIT/0 ML RTUINJ ONE (08:38)
[2018-09-07] MEDS ORDERED: ALBUTEROL SULFATE HFA (90 MCG/PUFF) 200 PUFF/8.5 GM MDI IH PRN (08:47)
[2018-09-07] MEDS ORDERED: OXYTOCIN/NORMAL SALINE 20 UNIT/1,000 ML RTUINJ IV PRN ×2 (08:50→22:11)
[2018-09-07] MEDS: LABETALOL HCL 200 MG TABLET PO SCH ×2 (09:00→22:46)
[2018-09-07 09:10] LABS: ABSOLUTE EOSINOPHILS # (AUTO) 0.1 10^3/uL (0.0-0.6); ABSOLUTE LYMPHOCYTES (AUTO) 1.5 10^3/uL (0.5-4.7); ABSOLUTE MONOCYTES (AUTO) 0.5 10^3/uL (0.1-1.4); ABSOLUTE NEUT (AUTO) 4.1 10^3/uL (1.7-8.2); BASOPHILS % (AUTO) 0.3 % (0-2); EOSINOPHILS % (AUTO) 2.1 % (0-6); HEMATOCRIT 30.9 % (36.0-47.0); HEMOGLOBIN 9.9 g/dL (12.0-15.5); LYMPHOCYTES % (AUTO) 23.5 % (13-45); MEAN CORPUSCULAR HEMOGLOBIN 23.1 pg (27.0-33.4); MEAN CORPUSCULAR VOLUME 72 fl (80-97); MONOCYTES % (AUTO) 8.2 % (3-13); PLATELET COUNT 234 10^3/uL (150-450); RED BLOOD COUNT 4.28 10^6/uL (3.72-5.28); RED CELL DISTRIBUTION WIDTH 19.5 % (11.5-14.0); SEGMENTED NEUTROPHILS % (AUTO) 65.9 % (42-78); TOTAL CELLS COUNTED % (AUTO) 100 %; WHITE BLOOD COUNT 6.2 10^3/uL (4.0-10.5)
[2018-09-07] MEDS ORDERED: CEFAZOLIN 1 GM/D5W RTU 2 GM/100 ML RTUPB IV ONE (09:14)
[2018-09-07] MEDS ORDERED: RINGERS SOLUTION,LACTATED 1,000 ML IV PRN (09:15)
[2018-09-07 09:27] LABS: ALANINE AMINOTRANSFERASE 19 U/L (9-52); ALBUMIN 3.1 g/dL (3.5-5.0); ALKALINE PHOSPHATASE 162 U/L (38-126); ANION GAP 8 (5-19); ASPARTATE AMINO TRANSFERASE 21 U/L (14-36); BILIRUBIN,DIRECT 0.1 mg/dL (0.0-0.4); BILIRUBIN,TOTAL 0.3 mg/dL (0.2-1.3); BLOOD UREA NITROGEN 7 mg/dL (7-20); CALCIUM 9.8 mg/dL (8.4-10.2); CARBON DIOXIDE 19 mmol/L (22-30); CHLORIDE 111 mmol/L (98-107); GLUCOSE 123 mg/dL (75-110); SODIUM 138.3 mmol/L (137-145); TOTAL PROTEIN 6.1 g/dL (6.3-8.2); URIC ACID 7.1 mg/dL (2.5-6.2)
[2018-09-07 09:28] LABS: POTASSIUM 3.9 mmol/L (3.6-5.0)
[2018-09-07 09:31] LABS: APPEARANCE,URINE SLIGHTLY-CLOUDY; BILIRUBIN,URINE NEGATIVE (NEGATIVE); COLOR,URINE YELLOW; GLUCOSE, URINE NEGATIVE (NEGATIVE); KETONES,URINE NEGATIVE (NEGATIVE); LEUKOCYTE ESTERASE,URINE MODERATE (NEGATIVE); NITRITE,URINE NEGATIVE (NEGATIVE); PROTEIN,URINE 30 mg/dL (NEGATIVE); URINE SPECIFIC GRAVITY 1.019; UROBILINOGEN,URINE NEGATIVE mg/dL (<2.0)
[2018-09-07 09:50] LABS: URINE AMPHETAMINES SCREEN NEGATIVE; URINE BARBITURATES SCREEN NEGATIVE; URINE BENZODIAZEPINES SCREEN NEGATIVE; URINE COCAINE SCREEN NEGATIVE; URINE MARIJUANA (THC) SCREEN NEGATIVE; URINE METHADONE SCREEN NEGATIVE; URINE PHENCYCLIDINE SCREEN NEGATIVE
--- NOTE | 2018-09-07 10:33 | Admission Physical ---
Datetime Report Generated by CPN: 09/07/2018 10:32 CURRENT ADMISSION Chief Complaint: Scheduled Induction of Labor Indication for Induction: Chronic Primary/Essential HTN Admit Impression : Term, Intrauterine Admit Plan: Admit to Unit; Initiate Labor Induction Protocol ALLERGIES Medication Allergies: Yes Medication Allergies: codeine phosphate/MO/Hives (09/07/2018); penicillin V potassium/MO/Hives (09/07/2018); Penicillins (09/07/2018); codeine (09/07/2018); shellfish derived/Difficulty vernon (09/07/2018) Latex: No Latex Allergies OBSTETRICAL HISTORY EDC: 09/13/2018 00:00 : 2 Para: 1 Livin Gestational Diabetes: Yes Rh Sensitization: No Incompetent Cervix: No TRACEY: No Infertility: No ART Treatment: No Uterine Anomaly: No IUGR: No Hx Previous C/S: No Macrosomia: No Hx Loss/Stillborn: No PIH: No Hx : No Placenta Previa/Abruption: No Depression/PP Depression: No PTL/PROM: No Post Hemorrhage: No Obstetrical History Comments: G1: 2011 39.1 wks , 9lbs 5oz G2- current GDM, HTN SEE RECORDS Alcohol: No Marijuana : No Cocaine: No Other Illicit Drugs: No Cigarettes: Never Smoker. [id number] MEDICAL HISTORY Diabetes: No Diabetes Type: Gestational Diabetes Blood Transfusion: No Pulmonary Disease (Asthma, TB): Yes Breast Disease: No Hypertension: Yes Mechanical Cad Drafter Surgery: No Heart Disease: No Hosp/Surgery: No Autoimmune Disorder: No Anesthetic Complications: No Kidney Disease: No Abnormal Pap Smear: No Neuro/Epilepsy: No Psychiatric Disorders: No Other Medical Diseases: No Hepatitis/Liver Disease: No Significant Family History: No Varicosities/Phlebitis: No Trauma/Violence : No Thyroid Dysfunction: No Medical History Comments: CHTN on Labetalol INFECTIOUS HISTORY Gonorrhea: No Genital Herpes: No Chlamydia: No Tuberculosis: No Syphilis: No Hepatitis: No HIV/AIDS Exposure: No Rash or Viral Illness: No HPV: Yes Infectious History Comments: hpv at age 19 PHYSICAL EXAM General: Normal HEENT: Normal Neurologic: Normal Thyroid: Deferred Heart: Normal Lungs: Normal Breast: Deferred Back: Normal Abdomen: Normal Genitourinary Exam: Normal Extremities: Normal DTRs: Normal Pelvic Type: Adequate Physical Exam Comments: pelvis proven to 9#5 Vital Signs: Reviewed Details Vital Signs: mild range elevated BP VAGINAL EXAM Contraction Comments: irreg MEMBRANES Membranes: Intact FETUS A EGA: 39.1 Monitoring: External US FHR- Baseline: 145 Variability: Moderate 6-25bpm Accelerations: 15X15 Decelerations: None Estimated Weight (gm): 4000 Presentation: Vertex Admit Comment: at 39w1d admitted for IOL d/t CHTN. GBS pos, allergic to penicillin, received ancef with previous labor without reaction. current asthma-albuterol ordered for bedside. P: pitocin IOL, anticipate PLANS FOR LABOR AND DELIVERY Labor and Delivery: None Pain Management: Epidural Feeding Preference: Both Benefit of Breast Feed Discussed: Yes Circumcision: Yes INFORMED CONSENT Assignment: Jamari Russell MD Signature: with User ID: [email or web address] : with User ID: [email or web address]
[2018-09-07] MEDS ORDERED: OXYTOCIN 10 UNIT/ML VIAL ONE ×2 (14:42→21:22)
[2018-09-07] MEDS ORDERED: LIDOCAINE 1% INJ-PF (10 MG/ML) 30 ML SDV ONE (14:43)
[2018-09-07] MEDS ORDERED: MISOPROSTOL 0.2 MG TABLET ONE (14:43)
[2018-09-07] MEDS ORDERED: OXYTOCIN/NORMAL SALINE 20 UNIT/1,000 ML RTUINJ ONE ×3 (14:43→23:51)
[2018-09-07] MEDS ORDERED: FENTANYL/BUPIVACAINE/NS/PF 300 MCG/150 ML RTUINJ EPI ONE (14:44)
[2018-09-07] MEDS ORDERED: EPHEDRINE SULFATE INJ 50 MG/1 ML AMPULE ONE (14:44)
[2018-09-07] MEDS ORDERED: BUPIVACAINE HCL 0.25 % INJ/PF (2.5 MG/1 ML) 30 ML VIAL ONE ×2 (14:44→16:22)
[2018-09-07] MEDS ORDERED: LIDOCAINE 1.5%/EPINEPHRINE INJ 5 ML AMP ONE (14:51)
[2018-09-07] MEDS ORDERED: CEFAZOLIN 1 GM/D5W RTU 1 GM/50 ML RTUPB IV ONE ×2 (17:02→17:05)
[2018-09-07] MEDS ORDERED: CEFAZOLIN 2 GM/D5W RTU 2 GM/50 ML RTUPB IV SCH (18:00)
[2018-09-07] MEDS ORDERED: CITRIC ACID/SODIUM CITRATE ORAL SOLN 15 ML UDCUP ONE (21:09)
[2018-09-07] MEDS ORDERED: LIDOCAINE 2% INJ-PF (20 MG/ML) 10 ML AMPUL ONE ×2 (21:13→21:14)
[2018-09-07] MEDS ORDERED: MIDAZOLAM 2 MG/2 ML INJ ONE ×2 (21:22→21:40)
[2018-09-07] MEDS ORDERED: MORPHINE SULFATE 10 MG/ML INJ ONE (21:23)
[2018-09-07] MEDS ORDERED: ONDANSETRON HCL INJ/PF 4 MG/2 ML SDV ONE (21:23)
[2018-09-07] MEDS ORDERED: FENTANYL CITRATE INJ/PF 100 MCG/2 ML AMPUL ONE ×2 (21:40→23:15)
[2018-09-07] MEDS ORDERED: ACETAMINOPHEN 325 MG TABLET PO PRN (22:11)
[2018-09-07] MEDS ORDERED: ACETAMINOPHEN 1,000 MG/100 ML RTUPB IV PRN (22:11)
[2018-09-07] MEDS ORDERED: PROMETHAZINE HCL INJ 25 MG/1 ML VIAL IV PRN (22:11)
[2018-09-07] MEDS ORDERED: SIMETHICONE 80 MG TAB.CHEW PO PRN (22:11)
[2018-09-07] MEDS ORDERED: MEASLES,MUMPS&RUBELLA VACC/PF 0.5 ML VIAL SUBCUT PRN (22:11)
[2018-09-07] MEDS ORDERED: DIPH/PERTUSS(ACELL)/TETANUS VAC/PF 0.5 ML SYR (>=10YO) IM PRN (22:11)
[2018-09-07] MEDS ORDERED: HYDRALAZINE HCL INJ/PF 20 MG/1 ML SDV ONE ×2 (22:54→23:22)
[2018-09-07] MEDS ORDERED: HYDRALAZINE HCL INJ/PF 20 MG/1 ML SDV IV ONE (22:56)
[2018-09-08] MEDS ORDERED: CEFAZOLIN SODIUM 2 GM in DEXTROSE 5%-WATER 100 ML IV SCH ×2
[2018-09-08] MEDS ORDERED: NIFEDIPINE 30 MG TAB.ER.24 PO ONE ×2 (00:06→00:13)
[2018-09-08] MEDS ORDERED: HYDRALAZINE HCL INJ/PF 20 MG/1 ML SDV ONE (00:06)
--- NOTE | 2018-09-08 00:39 | Warning Signs in Babies ---
VOD Warning Signs Datetime Report Generated by [facility]: 09/08/2018 00:39 VOD#608 -Warning Signs in Babies: Needs to be viewed. (05/25/2018 12:12:Maribell Lyons RN)
--- NOTE | 2018-09-08 00:45 | Delivery Summary ---
Del Sum A-C Datetime Report Generated by CPN: 09/08/2018 00:45 DELIVERY PERSONNEL DELIVERY PERSONNEL: [id number] Delivery Doctor:: Jamari Russell MD Anesthesiologist:: Bert Koehler MD CROP FARM HELPER:: Cale Saha CRNA Labor and Delivery Nurse:: Maribell Lyons RN Manager Of Merchandising:: Negrita Javier RN Chassis Engineer/NEW ACCOUNT INTERVIEWER: ST Yoseph Chassis Engineer/NEW ACCOUNT INTERVIEWER: adalberto Hieu, ST MATERNAL INFORMATION Delivery Anesthesia: Epidural Medications After Delivery: Pitocin Drip 20 Units/1000ml NSS Estimated Blood Loss (ml): 650 Delivery QBL: 650 Maternal Complications: None Provider Comments: true knot in cord large fibroid LABOR SUMMARY EDC: 09/13/2018 00:00 No. Babies in Womb: 1 Attempted: No Labor Anesthesia: Epidural LABOR INFORMATION Reason for Induction: Chronic Primary/Essential HTN; Maternal Diabetes Onset of Labor: 09/07/2018 14:30 Group B Beta Strep: positive Antibiotics # of Doses: 2 Antibiotics Time of Last Dose: 171 Name of Antibiotic Given: ancef Steroids Given: None Reason Steroids Not Administered: Not Applicable MEMBRANES Membranes Rupture Method: Artificial Rupture of Membranes: 09/07/2018 14:31 Length of Rupture (hr): 7.10 Amniotic Fluid Color: Clear Amniotic Fluid Amount: Moderate STAGES OF LABOR Stage 3 hr: 0 Stage 3 min: 1 Total Time in Labor hr: 7 Total Time in Labor min: 8 VAGINAL DELIVERY Episiotomy: None Laceration #1: None Laceration Repair: Not Applicable CSECTION DELIVERY Primary Indication: Nonreassuring Status CSection Urgency: Non-Scheduled CSection Incidence: Primary Labor: Labor Elective: Nonelective CSection Incision: Lower Uterine Transverse BABY A INFORMATION Delivery Date/Time: 09/07/2018 21:37 Method of Delivery: Born in Route : No : N/A Forceps: N/A Vacuum Extraction: N/A Shoulder Dystocia : No PRESENTATION/POSITION BABY A Presentation: Cephalic Cephalic Presentation: Vertex Breech Presentation: N/A PLACENTA INFORMATION BABY A Placenta Delivery Time : 09/07/2018 21:38 Placenta Method of Delivery: Manual Removal Placenta Status: Delivered SCORES BABY A Heart Rate 1 min: >100 bpm Resp Effort 1 min: Good Cry Reflex Irritability 1 min: Grimace Muscle Tone 1 min: Some Flexion of Extremities Color 1 min: Completely Gary SCORE 1 MIN: 8 Heart Rate 5 min: >100 bpm Resp Effort 5 min: Good Cry Reflex Irritability 5 min: Cough or Sneeze or Pulls Away Muscle Tone 5 min: Active Motion Color 5 min: Body Gary, Extremities Blue SCORE 5 MIN: 9 INFORMATION BABY A Gestational Age at Delivery: 39.1 Gestational Status: Full Term- 39- 40.6 Weeks Outcome : Liveborn Condition : Stable Sex: Male IDENTIFICATION BABY A Verification Date/Time: 09/07/2018 21:55 ID Band Number: [id number] Mother's Name Verified: Yes Infant RN Verifying : DimitriRADHA Additional Verifying Personnel: RADHA Kc WEIGHT/LENGTH BABY A Birthweight (gm): 4025 Weight (lb): 8 Infant Weight (oz): 14 Length (in): 20.00 Length (cm): 50.80 CORD INFORMATION BABY A No. Cord Vessels: 3 Nuchal Cord : N/A True Knot: 1 Cord Blood Taken: Yes-For Eval (Mom's Blood Type - or O+) Suction: Mouth ASSESSMENT BABY A Skin to Skin: Yes Transferred To: Nursery SIGNATURES Signature: with User ID: [email or web address] : I was personally available for consultation and serving as supervising physician for the P.
[2018-09-08] MEDS: CEFAZOLIN 2 GM/D5W RTU 2 GM/50 ML RTUPB IV SCH (02:02)
[2018-09-08] MEDS: LABETALOL HCL 200 MG TABLET PO SCH (02:02)
[2018-09-08] MEDS: KETOROLAC TROMETHAMINE INJ/PF 30 MG/1 ML SDV IV SCH ×3 (05:16→21:58)
[2018-09-08 05:59] LABS: HEMATOCRIT 31.1 % (36.0-47.0); MEAN CORPUSCULAR HEMOGLOBIN 23.2 pg (27.0-33.4); MEAN CORPUSCULAR HGB CONC 32.2 g/dL (32.0-36.0); MEAN CORPUSCULAR VOLUME 72 fl (80-97); PLATELET COUNT 226 10^3/uL (150-450); RED BLOOD COUNT 4.32 10^6/uL (3.72-5.28); RED CELL DISTRIBUTION WIDTH 19.2 % (11.5-14.0); WHITE BLOOD COUNT 8.9 10^3/uL (4.0-10.5)
--- NOTE | 2018-09-08 07:30 | OPERATIVE REPORT E ---
Operative Report NAME: FOX FERRIS : 1985 AGE: 32Y DATE OF SURGERY: 09/07/2018 ROOM: 227 PREOPERATIVE DIAGNOSIS: IUP at term with nonreassuring strip. POSTOPERATIVE DIAGNOSIS: IUP at term with nonreassuring strip. PROCEDURE: Primary low transverse , delivery of viable male 9 pounds 14 ounces. Apgars are pending. SURGEON: Vik MANRIQUEZ M.D. ESTIMATED BLOOD LOSS: Less than 800 mL. TISSUE REMOVED OR ALTERED: Placenta. ANESTHESIA: Epidural. DESCRIPTION OF PROCEDURE: The patient was placed in the supine position and rolled on her right side, prepped and draped in sterile fashion. A Pfannenstiel incision was made. Incision extended through the subcutaneous tissue and fascia with sharp dissection. Fascia was sharply divided. Rectus muscle was bluntly and sharply divided. Parietal peritoneum was entered with sharp dissection. Uterus nicked in the midline and extended bilaterally. Infant then was delivered through the uterine abdominal incision. Nose and mouth suctioned with bulb syringe. Cord was clamped. was passed from the table. A true knot was noted in the cord. The placenta was manually extracted and the uterus closed in 2 layers, first with a running stitch of 0 Vicryl and a second Lembert stitch imbricating the first layer. Two areas of bleeding were noted in the mid portion and controlled with [id number] sutures of 0 Vicryl. Hemostasis was noted. Fascia was then closed with 0 Vicryl and the skin with subcu absorbable roseline. The patient tolerated the procedure well. She was taken to the recovery room in good condition and went to nursery in good condition. DICTATING PHYSICIAN: Vik MANRIQUEZ M.D. [id number] PHY#: [id number] ID: [id number] JOB#: [id number] ACCT: [id number] cc:Vik MANRIQUEZ M.D. >
[2018-09-08] MEDS: OXYCODONE-ACETAMINOPHEN 5-325 MG TABLET PO PRN ×2 (08:48→13:52)
[2018-09-08] MEDS: PRENATAL VITAMIN W DHA CAPSULE PO SCH (10:15)
[2018-09-08] MEDS: DOCUSATE SODIUM 100 MG CAPSULE PO SCH ×2 (10:15→17:00)
--- NOTE | 2018-09-08 10:34 | PDOC PROGRESS REPORT ---
Subjective-OB Progress Note for:: 09/08/18 - POD #1, doing well, . S/p Primary c- section for intolerance to labor last night., O+ Physical Exam (OB) Vital Signs: Temp Pulse Resp BP Pulse Ox 99.0 F 107 H 16 120/71 98 09/08/18 08:33 09/08/18 08:33 09/08/18 08:33 09/08/18 08:33 09/08/18 08:33 Intake & Output 09/07/18 09/08/18 09/09/18 06:59 06:59 06:59 Intake Total 250 Output Total 600 Balance -350 Weight 120 kg - General General Appearance: Appears well, Alert - PIH/Pre-Eclampsia DTR's: 1 + Clonus: Negative Headache: Absent Epigastric Pain: No Visual Changes: No - Dressing Removed: No Incision: Dressing Closure Type: pressure - Lochia Lochia Amount: Scant < 10 ml Lochia Color: Rubra/Red - Abdomen Description: Soft, Round Hernia Present: No Fundal Description: Firm, Midline Fundal Height: u/u - u/2 - Respiratory Respiratory Status: No respiratory distress - Abdominal Inspection: Normal Distension: No distension Tenderness: Nontender - Genitourinary Genitourinary Note: lozada cath present - Extremities Upper extremity: Normal inspection Lower extremities: Edema - trace - Neurological Cognition: Normal Orientation: AAOx4 - Psychological Associated symptoms: Normal affect, Normal mood - Skin Skin Temperature: Warm Skin Moisture: Dry Objective-Diagnostic Laboratory: 09/08/18 05:39 09/07/18 08:50 09/08/18 05:39 WBC 8.9 RBC 4.32 Hgb 10.0 L Hct 31.1 L MCV 72 L MCH 23.2 L MCHC 32.2 RDW 19.2 H Plt Count 226 Assessment and Plan(PN) - Assessment and Plan (1) Status post primary low transverse section Is this a current diagnosis for this admission?: Yes (2) Chronic hypertension affecting Is this a current diagnosis for this admission?: Yes (3) Encounter for induction of labor Is this a current diagnosis for this admission?: Yes (4) Gestational diabetes Qualifiers: Gestational diabetes mellitus control: diet-controlled Is this a current diagnosis for this admission?: Yes - Time Spent with Patient Time with patient: Less than 15 minutes Medications reviewed and adjusted accordingly: Yes - Disposition Anticipated Discharge: Home Within: within 48 hours
[2018-09-08] MEDS ORDERED: ALBUTEROL SULFATE HFA (90 MCG/PUFF) 200 PUFF/8.5 GM MDI IH PRN ×2 (16:12→16:22)
[2018-09-09] MEDS: OXYCODONE-ACETAMINOPHEN 5-325 MG TABLET PO PRN ×3 (00:06→10:27)
[2018-09-09] MEDS: IBUPROFEN 800 MG TABLET PO SCH ×3 (01:18→12:27)
[2018-09-09] MEDS: KETOROLAC TROMETHAMINE INJ/PF 30 MG/1 ML SDV IV SCH ×2 (06:05→14:12)
[2018-09-09] MEDS: PRENATAL VITAMIN W DHA CAPSULE PO SCH (09:47)
[2018-09-09] MEDS: DOCUSATE SODIUM 100 MG CAPSULE PO SCH (09:47)
--- NOTE | 2018-09-09 10:55 | PDOC DISCHARGE SUMMARY ---
Final Diagnosis Discharge Date: 09/09/18 - POD #2, doing well, no complaints, desires to go home today, O+, rubella Immune, - Final Diagnosis (1) Status post primary low transverse section Is this a current diagnosis for this admission?: Yes (3) Encounter for induction of labor Is this a current diagnosis for this admission?: Yes (4) Gestational diabetes Is this a current diagnosis for this admission?: Yes Discharge Data - Discharge Medication Prescriptions: Ibuprofen [Motrin 800 mg Tablet] 800 mg PO Q6 #60 tablet Oxycodone HCl/Acetaminophen [Percocet 5-325 mg Tablet] 1 tab PO Q4HP PRN #30 tablet PRN Reason: Pain Scale Of 3 Home Medications: Albuterol Sulfate [Albuterol Sulfate 2.5mg/3 mL] 2 puff IH PRN PRN 03/19/12 Labetalol HCl [Normodyne 200 mg Tablet] 200 mg PO BID 05/25/18 No122/Iron/Folic Acid [ Multi Tablet] 1 each PO DAILY 05/25/18 Ferrous Sulfate [Iron] 1 tab PO DAILY 09/07/18 Ibuprofen [Motrin 800 mg Tablet] 800 mg PO Q6 #60 tablet 09/09/18 Oxycodone HCl/Acetaminophen [Percocet 5-325 mg Tablet] 1 tab PO Q4HP PRN #30 tablet 09/09/18 Reason(s) for Admission: Induction of Labor, Gestional Diabetes, Other - chtn Procedures: NST, Ultrasound, Management of Obstetric Complications Intrapartum Procedure(s): : Low Cervical, Transverse - Diagnosis Test Laboratory: Temp Pulse Resp BP Pulse Ox 98.0 F 114 H 22 H 135/83 H 98 09/09/18 08:36 09/09/18 08:36 09/09/18 08:36 09/09/18 08:36 09/09/18 08:36 09/07/18 09/07/18 09/08/18 08:25 08:50 05:39 RBC 4.28 4.32 Hgb 9.9 L 10.0 L Hct 30.9 L 31.1 L Urine Opiates Screen NEGATIVE - Discharge information/Instructions Discharge Activity: Activity As Tolerated, No Driving, No Lifting Over 10 Pounds, Pelvic Rest Discharge Diet: As Tolerated, Regular Disposition: HOME, SELF-CARE Follow up with: [facility] in: 1, Weeks - for incision and BP check
[2018-09-09 12:19] VITALS: BP 135/83
== END 2018-09-09 14:46 | disposition home or self-care (01) | DRG 787 ==
LOC: LR 08:06 → 2S 09-08 00:55
PROVIDERS: ADMIT Obstetrics & Gynecology Gynecology; ATTEND Obstetrics & Gynecology Gynecology
PROC: 10D00Z1 Extraction of Products of Conception, Low, Open Approach (ICD-10-PCS; principal; 2018-09-07)
PROC: 4A1HXCZ Monitoring of Products of Conception, Cardiac Rate, External Approach (ICD-10-PCS; 2018-09-07)
DX: O24.420 Gestational diabetes mellitus in childbirth, diet controlled (principal); O10.02 Pre-existing essential hypertension complicating childbirth; O34.211 Maternal care for low transverse scar from previous cesarean delivery; O69.1XX0 Labor and delivery complicated by cord around neck, with compression, not applicable or unspecified; O99.824 Streptococcus B carrier state complicating childbirth; O76 Abnormality in fetal heart rate and rhythm complicating labor and delivery; Z37.0 Single live birth; Z88.6 Allergy status to analgesic agent; Z88.0 Allergy status to penicillin; Z91.013 Allergy to seafood; Z3A.39 39 weeks gestation of pregnancy
CPT/HCPCS: 1961; 36415; 80053; 80307; 81001; 83615; 84550; 85025; 85027; 86592; 86850; 86900; 86901; 94760; 94799; J0360; J0690; J1885; J2250; J2270; J2405; J2590; J3010; J3490; J7060

== ENCOUNTER 2018-09-16 09:01 | Emergency (ER) | payer MEDICAID ==
[2018-09-16] MEDS ORDERED: IBUPROFEN 800 MG TABLET PO ONE (09:33)
--- NOTE | 2018-09-16 09:36 | ER Document Report ---
Addendum entered and electronically signed by CHALINO FRANKLIN FNP 09/16/18 09:38: ED Medical Screen (RME) - General Chief Complaint: Wound Recheck Stated Complaint: POST OP COMPLICATIONS Time Seen by Provider: 09/16/18 09:24 Primary Care Provider: GALE COLLIER MD [Primary Care Provider] - Follow up as needed Notes: Patient also states that she has left ear "popping" and would like to get it ch ecked. TRAVEL OUTSIDE OF THE [place] IN LAST 30 DAYS: No - Related Data Allergies/Adverse Reactions: codeine phosphate [From Codeine Phosphate Soluble] Allergy (Intermediate, Verified 09/16/18 09:02) Hives penicillin V potassium [From Pen-Vee K] Allergy (Intermediate, Verified 09/16/18 09:02) Hives codeine [Codeine] Allergy (Unknown, Verified 09/16/18 09:02) Penicillins Allergy (Unknown, Verified 09/16/18 09:02) shellfish derived Allergy (Unknown, Verified 09/16/18 09:02) Difficulty breathing Original Note: ED Medical Screen (RME) - General Chief Complaint: Wound Recheck Stated Complaint: POST OP COMPLICATIONS Time Seen by Provider: 09/16/18 09:24 Primary Care Provider: GALE COLLIER MD [Primary Care Provider] - Follow up as needed Notes: Patient is a 32-year-old female who presents to the emergency department with concerns for her site. She is 9 days . She states that she has noticed a foul odor, but is unsure as to whether or not the foul odor is from her vagina or from her incision site. Patient states that she does feel warm. She also states that a plastic piece came out of her incision. Patient has a history of hypertension and is currently on labetalol. She is also currently on ibuprofen and oxycodone/acetaminophen for pain relief. Exam: Incision site noted to mid lower abdomen, exam limited due to patient's large pannus and position. I have greeted and performed a rapid initial assessment of this patient. A comprehensive ED assessment and evaluation of the patient, analysis of test results and completion of medical decision making process will be conducted by an additional ED providers. TRAVEL OUTSIDE OF THE [place] IN LAST 30 DAYS: No - Related Data Allergies/Adverse Reactions: codeine phosphate [From Codeine Phosphate Soluble] Allergy (Intermediate, Verified 09/16/18 09:02) Hives penicillin V potassium [From Pen-Vee K] Allergy (Intermediate, Verified 09/16/18 09:02) Hives codeine [Codeine] Allergy (Unknown, Verified 09/16/18 09:02) Penicillins Allergy (Unknown, Verified 09/16/18 09:02) shellfish derived Allergy (Unknown, Verified 09/16/18 09:02) Difficulty breathing Past Medical History - Past Medical History Cardiac Medical History: Reports: Hx Hypertension Pulmonary Medical History: Reports: Hx Asthma, Hx Pneumonia Renal/ Medical History: Denies: Hx Peritoneal Dialysis - Immunizations Immunizations up to date: Yes Hx Diphtheria, Pertussis, Tetanus Vaccination: Yes Physical Exam - Vital signs Vitals: Temp Pulse Resp BP Pulse Ox 98.4 F 83 18 161/102 H 99 09/16/18 09:06 09/16/18 09:06 09/16/18 09:06 09/16/18 09:06 09/16/18 09:06 Course - Vital Signs Vital signs: Temp Pulse Resp BP Pulse Ox 98.4 F 83 18 175/102 H 99 09/16/18 09:06 09/16/18 09:06 09/16/18 09:06 09/16/18 09:08 09/16/18 09:06 Doctor's Discharge - Discharge Referrals: GALE COLLIER MD [Primary Care Provider] - Follow up as needed
[2018-09-16] MEDS ORDERED: MORPHINE SULFATE 10 MG/ML INJ IV ONE (10:03)
--- NOTE | 2018-09-16 10:08 | ER Document Report ---
ED General - General Chief Complaint: Wound Recheck Stated Complaint: POST OP COMPLICATIONS Time Seen by Provider: 09/16/18 09:24 Primary Care Provider: GALE COLLIER MD [Primary Care Provider] - Follow up as needed Information source: Patient Notes: HPI: Patient is a 32-year-old female status post last , 9 days ago of a healthy infant who presents today stating she feels some pain in her incision site. No fevers or vomiting. No headache or blurry vision. No calf p ain or leg swelling. No difficulty urinating. She does states she feels some left "ear popping". She is on narcotic medications at home. Patient's blood pressure upon arrival was 175 of 102. Patient takes labetalol 200 mg twice daily. She denies missing any medications. She denies any chest pain or shortness of breath. Patient states she has a history of high blood pressure prior to . ROS: See HPI All other review of systems reviewed and otherwise negative Reviewed vital signs and nursing note as charted by RN. PHYSICAL EXAM: CONSTITUTIONAL: Alert and oriented and responds appropriately to questions. Well-appearing; well-nourished HEAD: Normocephalic; atraumatic EYES: PERRL; Sclerae non-icteric ENT: Normal nose; no rhinorrhea; moist mucous membranes; pharynx without lesions noted NECK: Supple without meningismus; non-tender; no cervical lymphadenopathy, no masses CARD: Regular rate and rhythm; no murmurs; symmetric distal pulses RESP: Normal chest excursion without splinting or tachypnea; breath sounds clear and equal bilaterally ABD/GI: Normal bowel sounds; slightly distended consistent with previous delivery of an elevated BMI; soft, wound site looks clean dry and intact with no surrounding erythema, no fluctuance, no drainage. No obvious dehiscence. This was a suture performed closure with no roseline. Wound scar in area slightly tender to palpation. No rebound or guarding BACK: The back appears normal and is non-tender to palpation EXT: Normal ROM in all joints; non-tender to palpation; no edema SKIN: No acute lesions noted NEURO: CN 2-12 intact; 5/5 bilateral upper and lower extremity strength with sensation intact to light touch PSYCH: The patient's mood and manner are appropriate. Grooming and personal hygiene are appropriate. TRAVEL OUTSIDE OF THE [place] IN LAST 30 DAYS: No - Related Data Allergies/Adverse Reactions: codeine phosphate [From Codeine Phosphate Soluble] Allergy (Intermediate, Verified 09/16/18 09:02) Hives penicillin V potassium [From Pen-Vee K] Allergy (Intermediate, Verified 09/16/18 09:02) Hives codeine [Codeine] Allergy (Unknown, Verified 09/16/18 09:02) Penicillins Allergy (Unknown, Verified 09/16/18 09:02) shellfish derived Allergy (Unknown, Verified 09/16/18 09:02) Difficulty breathing Past Medical History - Social History Smoking Status: Unknown if Ever Smoked Family History: Reviewed & Not Pertinent Patient has suicidal ideation: No Patient has homicidal ideation: No - Past Medical History Cardiac Medical History: Reports: Hx Hypertension Pulmonary Medical History: Reports: Hx Asthma, Hx Pneumonia Renal/ Medical History: Denies: Hx Peritoneal Dialysis - Immunizations Immunizations up to date: Yes Hx Diphtheria, Pertussis, Tetanus Vaccination: Yes Hx Pneumococcal Vaccination: 08/01/11 Physical Exam - Vital signs Vitals: Temp Pulse Resp BP Pulse Ox 98.4 F 83 18 161/102 H 99 09/16/18 09:06 09/16/18 09:06 09/16/18 09:06 09/16/18 09:06 09/16/18 09:06 Course - Re-evaluation Re-evalutation: 09/16/18 10:07 Given the history and physical examination, status post , blood pressure as recorded, with no obvious infection of the scar, afebrile with no vomiting, no headache, blurry vision, calf pain or leg swelling, on appropriate blood pressure medications, no missing dosages, I will obtain basic labs to check the patient's transaminase level as well as the patient's platelet level. I do believe status post delivery preeclampsia to be unlikely at this time. Given the patient's wound scar, I do not see any obvious signs of infection. Again patient has been afebrile with no vomiting. 09/16/18 11:47 Pain is improved. No other change in examination. Repeat blood pressure is pending. Hemoglobin has dropped from 10 to around 8 from the previous discharge after . Patient states very minimal vaginal bleeding consistent with prior delivery. I will touch base with PEDIATRIC MEDICAL ASSISTANT once the patient's full laborat ory values have returned. 09/16/18 12:49 I have called and reviewed the case entirely with Dr. Solis the PEDIATRIC MEDICAL ASSISTANT regarding the history, physical, and laboratory values. She would like me to start the patient on Procardia 60 mg XL tablets once daily and call the office on Tuesday for an appointment. She does not believe an ultrasound is necessary at this moment given the white blood cell count and the patient being afebrile with the abdominal examination I have explained. She would like a catheterized urine analysis to check the protein/creatinine ratio. She states if it is less than 0.3 the patient is okay to go home. Patient still denies any headache or blurry vision. 09/16/18 14:18 Catheterized urine protein as recorded. I have called and spoken directly to Dr. Solis and relayed the results. She is comfortable with that value. She would like me to prescribe 1 week of Procardia and have the patient call the office on Tuesday. Patient's pain is much improved to the abdomen. Vital signs have improved. I have provided the first dose of Procardia here. Patient understands the strict return precautions we have explained. - Vital Signs Vital signs: Temp Pulse Resp BP Pulse Ox 98.4 F 83 13 168/101 H 100 09/16/18 09:06 09/16/18 09:06 09/16/18 12:01 09/16/18 12:01 09/16/18 12:01 - Laboratory Result Diagrams: 09/16/18 10:35 09/16/18 10:35 Laboratory results interpreted by me: 09/16/18 09/16/18 09/16/18 10:35 10:35 11:51 RBC 3.51 L Hgb 8.1 L Hct 25.3 L MCV 72 L MCH 23.0 L MCHC 31.9 L RDW 19.2 H Potassium 3.4 L Chloride 108 H BUN 6 L Creatinine 0.48 L AST 38 H Albumin 3.4 L Urine Protein 100 H Urine Ketones Urine Blood LARGE H Urine Urobilinogen Ur Leukocyte Esterase LARGE H 09/16/18 13:29 RBC Hgb Hct MCV MCH MCHC RDW Potassium Chloride BUN Creatinine AST Albumin Urine Protein 30 H Urine Ketones TRACE H Urine Blood MODERATE H Urine Urobilinogen 2.0 H Ur Leukocyte Esterase MODERATE H Discharge - Discharge Clinical Impression: Postoperative abdominal pain Hypertension Qualifiers: Hypertension type: unspecified Qualified Code(s): I10 - Essential (primary) hypertension Condition: Good Disposition: HOME, SELF-CARE Additional Instructions: Come back immediately for any increased or return of pain, fevers or vomiting, headache or blurry vision, leg swelling, or any other acute problems. Please take the blood pressure medications as prescribed and please call Tuesday to help expedite follow-up with PEDIATRIC MEDICAL ASSISTANT. Tell them that you were seen in the emergency department and the PEDIATRIC MEDICAL ASSISTANT doctor Solis wanted you seen expeditiously. Prescriptions: Nifedipine [Procardia XL 60 mg Tablet] 60 mg PO DAILY #10 tab.er.24 Referrals: GALE COLLIER MD [Primary Care Provider] - Follow up as needed
[2018-09-16 11:10] LABS: ABSOLUTE LYMPHOCYTES (AUTO) 1.1 10^3/uL (0.5-4.7); ABSOLUTE MONOCYTES (AUTO) 0.5 10^3/uL (0.1-1.4); HEMOGLOBIN 8.1 g/dL (12.0-15.5); TOTAL CELLS COUNTED % (AUTO) 100 %
[2018-09-16 11:17] LABS: ABSOLUTE BASOPHILS # (AUTO) 0.1 10^3/uL (0.0-0.2); ABSOLUTE EOSINOPHILS # (AUTO) 0.2 10^3/uL (0.0-0.6); ABSOLUTE NEUT (AUTO) 4.4 10^3/uL (1.7-8.2); BASOPHILS % (AUTO) 0.9 % (0-2); EOSINOPHILS % (AUTO) 2.5 % (0-6); HEMATOCRIT 25.3 % (36.0-47.0); LYMPHOCYTES % (AUTO) 17.1 % (13-45); MEAN CORPUSCULAR HGB CONC 31.9 g/dL (32.0-36.0); MEAN CORPUSCULAR VOLUME 72 fl (80-97); MONOCYTES % (AUTO) 8.8 % (3-13); PLATELET COUNT 405 10^3/uL (150-450); RED BLOOD COUNT 3.51 10^6/uL (3.72-5.28); RED CELL DISTRIBUTION WIDTH 19.2 % (11.5-14.0); SEGMENTED NEUTROPHILS % (AUTO) 70.7 % (42-78); WHITE BLOOD COUNT 6.3 10^3/uL (4.0-10.5)
[2018-09-16 11:29] LABS: ALANINE AMINOTRANSFERASE 31 U/L (9-52); ALBUMIN 3.4 g/dL (3.5-5.0); ALKALINE PHOSPHATASE 103 U/L (38-126); ANION GAP 7 (5-19); ASPARTATE AMINO TRANSFERASE 38 U/L (14-36); BILIRUBIN,DIRECT 0.2 mg/dL (0.0-0.4); BILIRUBIN,TOTAL 0.4 mg/dL (0.2-1.3); BLOOD UREA NITROGEN 6 mg/dL (7-20); CARBON DIOXIDE 25 mmol/L (22-30); CHLORIDE 108 mmol/L (98-107); GLUCOSE 93 mg/dL (75-110); POTASSIUM 3.4 mmol/L (3.6-5.0); TOTAL PROTEIN 6.9 g/dL (6.3-8.2)
[2018-09-16 12:19] LABS: APPEARANCE,URINE SLIGHTLY-CLOUDY; BILIRUBIN,URINE NEGATIVE (NEGATIVE); COLOR,URINE YELLOW; GLUCOSE, URINE NEGATIVE (NEGATIVE); KETONES,URINE NEGATIVE (NEGATIVE); LEUKOCYTE ESTERASE,URINE LARGE (NEGATIVE); NITRITE,URINE NEGATIVE (NEGATIVE); PROTEIN,URINE 100 mg/dL (NEGATIVE); URINE SPECIFIC GRAVITY 1.009; UROBILINOGEN,URINE NEGATIVE mg/dL (<2.0)
[2018-09-16] MEDS ORDERED: NIFEDIPINE 30 MG TAB.ER.24 PO ONE (12:49)
[2018-09-16 14:01] LABS: APPEARANCE,URINE CLOUDY; BILIRUBIN,URINE NEGATIVE (NEGATIVE); COLOR,URINE YELLOW; GLUCOSE, URINE NEGATIVE (NEGATIVE); KETONES,URINE TRACE mg/dL (NEGATIVE); LEUKOCYTE ESTERASE,URINE MODERATE (NEGATIVE); NITRITE,URINE NEGATIVE (NEGATIVE); PROTEIN,URINE 30 mg/dL (NEGATIVE); URINE SPECIFIC GRAVITY 1.024
[2018-09-16 14:53] VITALS: BP 159/107
== END 2018-09-16 15:01 | disposition home or self-care (01) ==
LOC: ER 09:01
DX: G89.18 Other acute postprocedural pain (principal); R10.9 Unspecified abdominal pain; I10 Essential (primary) hypertension; Z98.890 Other specified postprocedural states; Z79.899 Other long term (current) drug therapy; J45.909 Unspecified asthma, uncomplicated
CPT/HCPCS: 99283; 51701; 96374; 36415; 87086; 85025; 87070; 87088; 81001; 87186; J3490 ×2; J2270

== ENCOUNTER 2018-09-19 19:52 | Inpatient (IN) | payer MEDICAID ==
--- NOTE | 2018-09-19 20:10 | ER Document Report ---
ED Medical Screen (RME) - General Chief Complaint: Wound Infection Stated Complaint: ABDOMINAL PAIN Time Seen by Provider: 09/19/18 20:05 Primary Care Provider: GALE COLLIER MD [Primary Care Provider] - Follow up as needed TRAVEL OUTSIDE OF THE [place] IN LAST 30 DAYS: No - HPI Notes: 09/19/18 20:10 Patient is a 32-year-old female status post 12 days ago who presents complaining of continued pain and discharge from her site. She was evaluated 3 days ago and was placed on blood pressure medication. Patient says her blood pressure has not been improving as well. She is able to eat and drink without difficulty. She is urinating normally. No other concerns or complaints. Denies GOODMAN, fever, neck pain, URI, CP, SOB, dysuria, back pain, or rash. I have treated and performed a rapid initial assessment of this patient. A comprehensive ED assessment and evaluation of the patient, analysis of test results and completion of medical decision making process will be conducted by additional ED providers. PHYSICAL EXAMINATION: GENERAL: Well-appearing, well-nourished and in no acute distress. A&Ox4. Answers questions appropriately. ABDOMEN: Was able to somewhat visualize area, but pt in chair- noted erythema, discharge, and tenderness. (cannot elicit thorough abd exam w/o bed, however). - Related Data Allergies/Adverse Reactions: codeine phosphate [From Codeine Phosphate Soluble] Allergy (Intermediate, Verified 09/16/18 09:02) Hives penicillin V potassium [From Pen-Vee K] Allergy (Intermediate, Verified 09/16/18 09:02) Hives codeine [Codeine] Allergy (Unknown, Verified 09/16/18 09:02) Penicillins Allergy (Unknown, Verified 09/16/18 09:02) shellfish derived Allergy (Unknown, Verified 09/16/18 09:02) Difficulty breathing Past Medical History - Social History Frequency of alcohol use: None Drug Abuse: None - Past Medical History Cardiac Medical History: Reports: Hx Hypertension Pulmonary Medical History: Reports: Hx Asthma, Hx Pneumonia Renal/ Medical History: Denies: Hx Peritoneal Dialysis Past Surgical History: Reports: Hx Section - Immunizations Immunizations up to date: Yes Hx Diphtheria, Pertussis, Tetanus Vaccination: Yes Physical Exam - Vital signs Vitals: Temp Pulse Resp BP Pulse Ox 98.1 F 95 18 170/116 H 99 09/19/18 19:59 09/19/18 19:59 09/19/18 19:59 09/19/18 19:59 09/19/18 19:59 Course - Vital Signs Vital signs: Temp Pulse Resp BP Pulse Ox 98.1 F 95 18 170/116 H 99 09/19/18 19:59 09/19/18 19:59 09/19/18 19:59 09/19/18 19:59 09/19/18 19:59 Doctor's Discharge - Discharge Referrals: GALE COLLIER MD [Primary Care Provider] - Follow up as needed
[2018-09-19 20:41] LABS: ABSOLUTE BASOPHILS # (AUTO) 0.1 10^3/uL (0.0-0.2); ABSOLUTE EOSINOPHILS # (AUTO) 0.2 10^3/uL (0.0-0.6); ABSOLUTE LYMPHOCYTES (AUTO) 1.8 10^3/uL (0.5-4.7); ABSOLUTE MONOCYTES (AUTO) 0.5 10^3/uL (0.1-1.4); BASOPHILS % (AUTO) 0.8 % (0-2); HEMATOCRIT 30.9 % (36.0-47.0); HEMOGLOBIN 9.8 g/dL (12.0-15.5); LYMPHOCYTES % (AUTO) 24.2 % (13-45); MEAN CORPUSCULAR HEMOGLOBIN 22.9 pg (27.0-33.4); MEAN CORPUSCULAR HGB CONC 31.8 g/dL (32.0-36.0); MEAN CORPUSCULAR VOLUME 72 fl (80-97); MONOCYTES % (AUTO) 6.9 % (3-13); PLATELET COUNT 471 10^3/uL (150-450); RED BLOOD COUNT 4.29 10^6/uL (3.72-5.28); RED CELL DISTRIBUTION WIDTH 18.8 % (11.5-14.0); SEGMENTED NEUTROPHILS % (AUTO) 65.1 % (42-78); TOTAL CELLS COUNTED % (AUTO) 100 %; WHITE BLOOD COUNT 7.6 10^3/uL (4.0-10.5)
[2018-09-19 20:54] LABS: ALANINE AMINOTRANSFERASE 26 U/L (9-52); ALKALINE PHOSPHATASE 116 U/L (38-126); ANION GAP 9 (5-19); ASPARTATE AMINO TRANSFERASE 25 U/L (14-36); BILIRUBIN,DIRECT 0.3 mg/dL (0.0-0.4); BILIRUBIN,TOTAL 0.5 mg/dL (0.2-1.3); BLOOD UREA NITROGEN 9 mg/dL (7-20); CALCIUM 9.6 mg/dL (8.4-10.2); CARBON DIOXIDE 26 mmol/L (22-30); CHLORIDE 107 mmol/L (98-107); GLUCOSE 99 mg/dL (75-110); POTASSIUM 3.8 mmol/L (3.6-5.0); TOTAL PROTEIN 7.6 g/dL (6.3-8.2)
--- NOTE | 2018-09-19 20:57 | RADIOLOGY REPORT (SQ) ---
EXAM DESCRIPTION: US PELVIS LIMITED COMPLETED DATE/TME: 09/19/2018 20:13 CLINICAL HISTORY: 32 years, Female, eval pain/discharge, ?abscess COMPARISON: None. TECHNIQUE: Axial 2-D grayscale images of the pelvis was performed, with special attention to the superficial soft tissues. Doppler was utilized. LIMITATIONS: None. FINDINGS: Focused sonographic evaluation of the superficial soft tissues of the pelvis reveals a large complex fluid collection measuring at least 7.3 x 3.1 x 2.9 cm in size demonstrating septations. Unfortunately, the entirety of the collection cannot be measured on this particular examination. No Doppler flow is identified within the lesion. IMPRESSION: Complex fluid collection located within the superficial soft tissues of the pelvic wall. A large abscess is a possibility. copyright 2010 [employer]- All Rights Reserved
[2018-09-19 22:29] LABS: APPEARANCE,URINE SLIGHTLY-CLOUDY; BILIRUBIN,URINE NEGATIVE (NEGATIVE); COLOR,URINE AMBER; GLUCOSE, URINE NEGATIVE (NEGATIVE); KETONES,URINE NEGATIVE (NEGATIVE); LEUKOCYTE ESTERASE,URINE LARGE (NEGATIVE); NITRITE,URINE NEGATIVE (NEGATIVE); PROTEIN,URINE 100 mg/dL (NEGATIVE); URINE SPECIFIC GRAVITY 1.024
[2018-09-19] MEDS ORDERED: MORPHINE SULFATE 10 MG/ML INJ IV ONE (23:31)
[2018-09-20] MEDS ORDERED: LIDOCAINE 2% INJ (20 MG/ML) 20 ML MDV INJ ONE (00:41)
[2018-09-20] MEDS ORDERED: CLINDAMYCIN 300 MG/D5W RTU 300 MG/50 ML RTUPB IV ONE (01:05)
--- NOTE | 2018-09-20 01:06 | ER Document Report ---
ED General - General Chief Complaint: Wound Infection Stated Complaint: ABDOMINAL PAIN Time Seen by Provider: 09/19/18 20:05 Notes: Patient is a pleasant 32-year-old female who presents with complaints of abdominal pain and swelling over her incision site. Patient had surgery on the . She said yesterday she started no some swelling and tonight she noticed discharge coming from the area and increasing pain. She does have hypertension. She was recently switched to nifedipine but says her blood pressure still running high. She had hypertension before and had a throughout her and afterwards as well. She is currently breast- feeding. She denies any bleeding. She denies any other complaints at this t [place]. No fevers. TRAVEL OUTSIDE OF THE [place] IN LAST 30 DAYS: No - Related Data Allergies/Adverse Reactions: codeine phosphate [From Codeine Phosphate Soluble] Allergy (Intermediate, Verified 09/16/18 09:02) Hives penicillin V potassium [From Pen-Vee K] Allergy (Intermediate, Verified 09/16/18 09:02) Hives codeine [Codeine] Allergy (Unknown, Verified 09/16/18 09:02) Penicillins Allergy (Unknown, Verified 09/16/18 09:02) shellfish derived Allergy (Unknown, Verified 09/16/18 09:02) Difficulty breathing Past Medical History - Social History Smoking Status: Never Smoker Frequency of alcohol use: None Drug Abuse: None Lives with: Family Family History: Reviewed & Not Pertinent Patient has suicidal ideation: No Patient has homicidal ideation: No - Past Medical History Cardiac Medical History: Reports: Hx Hypertension Pulmonary Medical History: Reports: Hx Asthma, Hx Pneumonia Renal/ Medical History: Denies: Hx Peritoneal Dialysis Past Surgical History: Reports: Hx Section - Immunizations Immunizations up to date: Yes Hx Diphtheria, Pertussis, Tetanus Vaccination: Yes Hx Pneumococcal Vaccination: 08/01/11 Review of Systems - Review of Systems Notes: My Normal Review Basic REVIEW OF SYSTEMS: CONSTITUTIONAL : Denies fever, chills, or sweats. Denies recent illness. CARDIOVASCULAR: Denies chest pain. RESPIRATORY: Denies cough, cold, or chest congestion. Denies shortness of breath, difficulty breathing, or wheezing. GASTROINTESTINAL: Abdominal pain. Abnormal discharge coming from surgical incision site. GENITOURINARY: Denies difficulty urinating, painful urination, burning, frequency, or blood in urine. FEMALE GENITOURINARY: Denies vaginal bleeding, abnormal or irregular periods. MUSCULOSKELETAL: Denies neck or back pain or joint pain or swelling. SKIN: Denies rash or skin lesions. NEUROLOGICAL: Denies altered mental status or loss of consciousness. ALL OTHER SYSTEMS REVIEWED AND NEGATIVE. Physical Exam - Vital signs Vitals: Temp Pulse Resp BP Pulse Ox 98.1 F 95 18 170/116 H 99 09/19/18 19:59 09/19/18 19:59 09/19/18 19:59 09/19/18 19:59 09/19/18 19:59 - Notes Notes: General Appearance: Well nourished, alert, cooperative, no acute distress, moderate obvious discomfort. Vitals: reviewed, See vital signs table. Head: no swelling or tenderness to the head Eyes: PERRL, EOMI, Conjuctiva clear Mouth: No decreasd moisture Lungs: No wheezing, No rales, No rhonci, No accessory muscle use, good air exchange bilaterally. Heart: Normal rate, Regular rythm, No murmur, no rub Abdomen: Normal BS, soft, No rigidity, patient surgical incision site does have some granulation to it. It is not fully open at this time. She does have some small amount of drainage coming from it that is purulent appearing and has a foul smell. Remainder of abdomen is nontender except for the lower portion of the abdomen where the incision is. Extremities: strength 5/5 in all extremities, good pulses in all extremities, no swelling or tenderness in the extremities, no edema. Skin: warm, dry, appropriate color, no rash Neuro: speech clear, oriented x 3, normal affect, responds appropriately to questions. Symmetric facial movement. Patient moves all extremities without difficulty. No neurologic deficits on exam. Course - Re-evaluation Re-evalutation: 09/20/18 03:50 I did consult the focused factory manager on-call, Dr. Bell, who is very kindly came and evaluate the patient. She will admit the patient for IV antibiotics treatment for what appears to be postoperative incisional abscess. I did order the patient clindamycin. Patient does have hypertension. This appears to be a chronic ongoing problem for her. Suspect blood pressure is even higher now based on the fact that she is in pain. I therefore did order her some pain medicine. She does not have any concerning symptoms in association with her hypertension and that she does not have chest pain, no severe headache, no strok elike symptoms. Dictation of this chart was performed using voice recognition software; therefore, there may be some unintended grammatical errors. - Vital Signs Vital signs: Temp Pulse Resp BP Pulse Ox 98.2 F 99 18 178/122 H 98 09/20/18 03:32 09/20/18 03:32 09/20/18 03:32 09/20/18 03:32 09/20/18 03:32 - Laboratory Result Diagrams: 09/19/18 20:19 09/19/18 20:19 Laboratory results interpreted by me: 09/19/18 09/19/18 20:19 21:51 Hgb 9.8 L Hct 30.9 L MCV 72 L MCH 22.9 L MCHC 31.8 L RDW 18.8 H Plt Count 471 H Urine Protein 100 H Urine Blood LARGE H Urine Urobilinogen 4.0 H Ur Leukocyte Esterase LARGE H Urine Ascorbic Acid 40 H Discharge - Discharge Clinical Impression: Post-operative wound abscess Hypertension Qualifiers: Hypertension type: unspecified Qualified Code(s): I10 - Essential (primary) hypertension Condition: Stable Disposition: ADMITTED OBSERVATION Admitting Provider: [facility] Unit Admitted: Post
--- NOTE | 2018-09-20 01:07 | PDOC H&P ---
History of Present Illness Admission Date/PCP: GALE COLLIER MD Patient complains of: drainage from c/section incision and increased pain History of Present Illness: FOX FERRIS is a 32 year old female who underwent a repeat c/section with Dr. Russell on 09/07/2018. Had been doing well until yesterday when she noticed some mild drainage from incision. Today the drainage worsened and she began having increased pain. On eval with ER physician, a possible abscess was noted on ultrasound in the soft tissue Past Medical History LMP: 09/07 c section Cardiac Medical History: Reports: Hypertension Pulmonary Medical History: Reports: Asthma, Pneumonia Past Surgical History Past Surgical History: Reports: Section Social History Information Source: Patient Lives with: Family Smoking Status: Never Smoker Frequency of Alcohol Use: Rare Hx Recreational Drug Use: No Family History Family History: Reviewed & Not Pertinent Parental Family History Reviewed: Yes Children Family History Reviewed: Yes Sibling(s) Family History Reviewed.: Yes Medication/Allergy Home Medications: Albuterol Sulfate [Albuterol Sulfate 2.5mg/3 mL] 2 puff IH PRN PRN 03/19/12 Labetalol HCl [Normodyne 200 mg Tablet] 200 mg PO BID 05/25/18 No122/Iron/Folic Acid [ Multi Tablet] 1 each PO DAILY 05/25/18 Ferrous Sulfate [Iron] 1 tab PO DAILY 09/07/18 Ibuprofen [Motrin 800 mg Tablet] 800 mg PO Q6 #60 tablet 09/09/18 Oxycodone HCl/Acetaminophen [Percocet 5-325 mg Tablet] 1 tab PO Q4HP PRN #30 tablet 09/09/18 Nifedipine [Procardia XL 60 mg Tablet] 60 mg PO DAILY #10 tab.er.24 09/16/18 Nifedipine [Procardia XL 60 mg Tablet] 60 mg PO DAILY #10 tab.er.24 09/16/18 Allergies/Adverse Reactions: codeine phosphate [From Codeine Phosphate Soluble] Allergy (Intermediate, Verified 09/16/18 09:02) Hives penicillin V potassium [From Pen-Vee K] Allergy (Intermediate, Verified 09/16/18 09:02) Hives codeine [Codeine] Allergy (Unknown, Verified 09/16/18 09:02) Penicillins Allergy (Unknown, Verified 09/16/18 09:02) shellfish derived Allergy (Unknown, Verified 09/16/18 09:02) Difficulty breathing Review of Systems Constitutional: PRESENT: as per HPI Physical Exam - Physical Exam Vital Signs: Temp Pulse Resp BP Pulse Ox 98.2 F 96 20 182/110 H 100 09/19/18 23:08 09/19/18 23:08 09/19/18 23:08 09/19/18 23:08 09/19/18 23:08 Intake & Output 09/18/18 09/19/18 09/20/18 06:59 06:59 06:59 Weight 110 kg General appearance: PRESENT: no acute distress, cooperative Skin exam: PRESENT: erythema, other - wound on abdomen is draining yellowish fluid, granulamtous material in midline of incision. no [place] flutuance that could be located. cellulitic edema noted in soft tissue around the incision in the midline Result Laboratory Results: 09/19/18 20:19 09/19/18 20:19 09/19/18 09/19/18 09/19/18 20:19 20:19 21:51 WBC 7.6 RBC 4.29 Hgb 9.8 L Hct 30.9 L MCV 72 L MCH 22.9 L MCHC 31.8 L RDW 18.8 H Plt Count 471 H Seg Neutrophils % 65.1 Lymphocytes % 24.2 Monocytes % 6.9 Eosinophils % 3.0 Basophils % 0.8 Absolute Neutrophils 5.0 Absolute Lymphocytes 1.8 Absolute Monocytes 0.5 Absolute Eosinophils 0.2 Absolute Basophils 0.1 Sodium 142.0 Potassium 3.8 Chloride 107 Carbon Dioxide 26 Anion Gap 9 BUN 9 Creatinine 0.56 Est GFR ( Amer) > 60 Est GFR (Non-Af Amer) > 60 Glucose 99 Calcium 9.6 Total Bilirubin 0.5 AST 25 ALT 26 Alkaline Phosphatase 116 Total Protein 7.6 Albumin 4.0 Urine Color KARTHIK Urine Appearance SLIGHTLY-CLOUDY Urine pH 6.0 Ur Specific [place] 1.024 Urine Protein 100 H Urine Glucose (UA) NEGATIVE Urine Ketones NEGATIVE Urine Blood LARGE H Urine Nitrite NEGATIVE Ur Leukocyte Esterase LARGE H Urine WBC (Auto) 117 Urine RBC (Auto) >182 Impressions: Pelvis Ultrasound 09/19/18 20:13 IMPRESSION: Complex fluid collection located within the superficial soft tissues of the pelvic wall. A large abscess is a possibility. copyright 2010 [employer]- All Rights Reserved Assessment & Plan - Diagnosis (1) Wound infection following section, Is this a current diagnosis for this admission?: Yes (2) Postoperative abdominal pain Is this a current diagnosis for this admission?: Yes (3) Status post primary low transverse section Is this a current diagnosis for this admission?: Yes - Time Time Spent: 30 to 50 Minutes Critical Time spent with patient: Less than 15 minutes Medications reviewed and adjusted accordingly: Yes Anticipated discharge: Home Within: within 48 hours - Inpatient Certification Based on my medical assessment, after consideration of the patient's comorbidities, presenting symptoms, or acuity I expect that the services needed warrant INPATIENT care.: Yes I certify that my determination is in accordance with my understanding of Medicare's requirements for reasonable and necessary INPATIENT services [42 CFR 412.3e].: Yes Medical Necessity: Need for IV Antibiotics - possible need for I&D of incision - Plan Summary Plan Summary: admit for clindamycin IV. with gentamycin. pt's allergic to PCN and to codeine so will rx oxycodone and morphine for breakthrough pain. If incision softens and flutuance can be developed, will consider opening incision for wet to dry dressings.
[2018-09-20] MEDS ORDERED: MORPHINE SULFATE 10 MG/ML INJ IV PRN (01:10)
[2018-09-20] MEDS: CLINDAMYCIN 900 MG/D5W RTU 900 MG/50 ML RTUPB IV SCH ×3 (02:02→18:00)
[2018-09-20] MEDS: OXYCODONE-ACETAMINOPHEN 5-325 MG TABLET PO PRN ×2 (06:18→15:45)
[2018-09-20] MEDS ORDERED: HYDRALAZINE HCL INJ/PF 20 MG/1 ML SDV IV ONE (06:30)
--- NOTE | 2018-09-20 11:47 | PDOC PROGRESS REPORT ---
<CHITO MONTOYA - Last Filed: 09/20/18 11:45> Subjective-OB Progress Note for:: 09/20/18 Physical Exam (OB) Vital Signs: Temp Pulse Resp BP Pulse Ox 97.8 F 104 H 20 161/86 H 100 09/20/18 10:19 09/20/18 10:19 09/20/18 10:19 09/20/18 10:19 09/20/18 06:53 Intake & Output 09/19/18 09/20/18 09/21/18 06:59 06:59 06:59 Intake Total 200 Balance 200 Weight 110 kg - Abdomen Hernia Present: No Objective-Diagnostic Laboratory: 09/19/18 20:19 09/19/18 20:19 09/19/18 09/19/18 09/19/18 20:19 20:19 21:51 WBC 7.6 RBC 4.29 Hgb 9.8 L Hct 30.9 L MCV 72 L MCH 22.9 L MCHC 31.8 L RDW 18.8 H Plt Count 471 H Seg Neutrophils % 65.1 Lymphocytes % 24.2 Monocytes % 6.9 Eosinophils % 3.0 Basophils % 0.8 Absolute Neutrophils 5.0 Absolute Lymphocytes 1.8 Absolute Monocytes 0.5 Absolute Eosinophils 0.2 Absolute Basophils 0.1 Sodium 142.0 Potassium 3.8 Chloride 107 Carbon Dioxide 26 Anion Gap 9 BUN 9 Creatinine 0.56 Est GFR ( Amer) > 60 Est GFR (Non-Af Amer) > 60 Glucose 99 Calcium 9.6 Total Bilirubin 0.5 AST 25 ALT 26 Alkaline Phosphatase 116 Total Protein 7.6 Albumin 4.0 Urine Color KARTHIK Urine Appearance SLIGHTLY-CLOUDY Urine pH 6.0 Ur Specific [place] 1.024 Urine Protein 100 H Urine Glucose (UA) NEGATIVE Urine Ketones NEGATIVE Urine Blood LARGE H Urine Nitrite NEGATIVE Ur Leukocyte Esterase LARGE H Urine WBC (Auto) 117 Urine RBC (Auto) >182 Assessment and Plan(PN) - Assessment and Plan (1) Wound infection following section, Is this a current diagnosis for this admission?: Yes (2) Chronic hypertension affecting Is this a current diagnosis for this admission?: Yes (3) Status post primary low transverse section Is this a current diagnosis for this admission?: Yes - Time Spent with Patient Time with patient: Less than 15 minutes Medications reviewed and adjusted accordingly: Yes - Disposition Anticipated Discharge: Home Within: within 24 hours - discussed plan with Dr. Reyes, Start Procardia 60, was taking this at home, PP nurse notified <KARLA REYES - Last Filed: 09/20/18 20:31> Physical Exam (OB) Vital Signs: Temp Pulse Resp BP Pulse Ox 97.9 F 94 18 155/94 H 98 09/20/18 15:28 09/20/18 15:28 09/20/18 15:28 09/20/18 15:28 09/20/18 15:28 Intake & Output 09/19/18 09/20/18 09/21/18 06:59 06:59 06:59 Intake Total 200 2049 Balance 200 2049 Weight 110 kg Objective-Diagnostic Laboratory: 09/19/18 20:19 09/19/18 20:19 09/19/18 09/19/18 09/19/18 20:19 20:19 21:51 WBC 7.6 RBC 4.29 Hgb 9.8 L Hct 30.9 L MCV 72 L MCH 22.9 L MCHC 31.8 L RDW 18.8 H Plt Count 471 H Seg Neutrophils % 65.1 Lymphocytes % 24.2 Monocytes % 6.9 Eosinophils % 3.0 Basophils % 0.8 Absolute Neutrophils 5.0 Absolute Lymphocytes 1.8 Absolute Monocytes 0.5 Absolute Eosinophils 0.2 Absolute Basophils 0.1 Sodium 142.0 Potassium 3.8 Chloride 107 Carbon Dioxide 26 Anion Gap 9 BUN 9 Creatinine 0.56 Est GFR ( Amer) > 60 Est GFR (Non-Af Amer) > 60 Glucose 99 Calcium 9.6 Total Bilirubin 0.5 AST 25 ALT 26 Alkaline Phosphatase 116 Total Protein 7.6 Albumin 4.0 Urine Color KARTHIK Urine Appearance SLIGHTLY-CLOUDY Urine pH 6.0 Ur Specific [place] 1.024 Urine Protein 100 H Urine Glucose (UA) NEGATIVE Urine Ketones NEGATIVE Urine Blood LARGE H Urine Nitrite NEGATIVE Ur Leukocyte Esterase LARGE H Urine WBC (Auto) 117 Urine RBC (Auto) >182 Assessment and Plan(PN) - Assessment and Plan (1) Wound infection following section, Is this a current diagnosis for this admission?: Yes Plan: wound assessed and still draining. Unable to open to reach apparent pocket of probable abscess. Plan to cont abx and then re-eval in am. May need to take to OR to drain if needed and patient unable to tolerated at bedside. (2) Chronic hypertension affecting Is this a current diagnosis for this admission?: Yes Plan: nursing asked to complete med rec and then will adjust from home meds. - Time Spent with Patient Time with patient: 15-25 minutes Medications reviewed and adjusted accordingly: Yes - Disposition Anticipated Discharge: Home Within: within 24 hours
[2018-09-20] MEDS: NIFEDIPINE 30 MG TAB.ER.24 PO SCH (12:39)
[2018-09-20] MEDS ORDERED: BUTALB/ACETAMINOPHEN/CAFFEINE 1 TAB EACH PO ONE (19:30)
[2018-09-21] MEDS: CLINDAMYCIN 900 MG/D5W RTU 900 MG/50 ML RTUPB IV SCH ×3 (02:27→17:04)
[2018-09-21] MEDS: OXYCODONE-ACETAMINOPHEN 5-325 MG TABLET PO PRN (03:18)
[2018-09-21 07:49] LABS: ABSOLUTE BASOPHILS # (AUTO) 0.1 10^3/uL (0.0-0.2); ABSOLUTE EOSINOPHILS # (AUTO) 0.2 10^3/uL (0.0-0.6); ABSOLUTE MONOCYTES (AUTO) 0.5 10^3/uL (0.1-1.4); ABSOLUTE NEUT (AUTO) 3.7 10^3/uL (1.7-8.2); BASOPHILS % (AUTO) 0.9 % (0-2); EOSINOPHILS % (AUTO) 3.8 % (0-6); HEMATOCRIT 32.7 % (36.0-47.0); HEMOGLOBIN 10.2 g/dL (12.0-15.5); LYMPHOCYTES % (AUTO) 30.4 % (13-45); MEAN CORPUSCULAR HEMOGLOBIN 22.4 pg (27.0-33.4); MEAN CORPUSCULAR HGB CONC 31.2 g/dL (32.0-36.0); MEAN CORPUSCULAR VOLUME 72 fl (80-97); PLATELET COUNT 461 10^3/uL (150-450); RED BLOOD COUNT 4.55 10^6/uL (3.72-5.28); RED CELL DISTRIBUTION WIDTH 18.8 % (11.5-14.0); SEGMENTED NEUTROPHILS % (AUTO) 56.9 % (42-78); TOTAL CELLS COUNTED % (AUTO) 100 %; WHITE BLOOD COUNT 6.5 10^3/uL (4.0-10.5)
[2018-09-21] MEDS ORDERED: ALBUTEROL SULFATE 0.083% NEB 2.5 MG/3 ML AMPUL NEB PRN (08:33)
[2018-09-21] MEDS: IBUPROFEN 800 MG TABLET PO SCH ×4 (09:29→23:32)
[2018-09-21] MEDS: NIFEDIPINE 30 MG TAB.ER.24 PO SCH (09:30)
[2018-09-21] MEDS: FERROUS SULFATE 325 MG TABLET PO SCH (09:30)
[2018-09-21] MEDS: LABETALOL HCL 200 MG TABLET PO SCH ×2 (09:30→21:20)
[2018-09-21] MEDS ORDERED: ONDANSETRON HCL INJ/PF 4 MG/2 ML SDV ONE (10:18)
[2018-09-21] MEDS ORDERED: ONDANSETRON HCL INJ/PF 4 MG/2 ML SDV IV PRN (10:19)
--- NOTE | 2018-09-21 11:41 | PDOC PROGRESS REPORT ---
Subjective Progress Note for:: 09/21/18 Reason For Visit: SECTION post op wound infection Physical Exam - Physical Exam Vital Signs: Temp Pulse Resp BP Pulse Ox 98.8 F 103 H 22 H 172/92 H 98 09/21/18 07:52 09/21/18 07:52 09/21/18 07:52 09/21/18 07:52 09/21/18 07:52 Intake & Output 09/20/18 09/21/18 09/22/18 06:59 06:59 06:59 Intake Total 200 2950 50 Balance 200 2950 50 Weight 110 kg 108.8 kg General appearance: PRESENT: no acute distress GI/Abdominal exam: PRESENT: normal bowel sounds - incision draining Result Laboratory Results: 09/21/18 07:30 09/19/18 20:19 09/21/18 07:30 WBC 6.5 RBC 4.55 Hgb 10.2 L Hct 32.7 L MCV 72 L MCH 22.4 L MCHC 31.2 L RDW 18.8 H Plt Count 461 H Seg Neutrophils % 56.9 Lymphocytes % 30.4 Monocytes % 8.0 Eosinophils % 3.8 Basophils % 0.9 Absolute Neutrophils 3.7 Absolute Lymphocytes 2.0 Absolute Monocytes 0.5 Absolute Eosinophils 0.2 Absolute Basophils 0.1 Impressions: Pelvis Ultrasound 09/19/18 20:13 IMPRESSION: Complex fluid collection located within the superficial soft tissues of the pelvic wall. A large abscess is a possibility. copyright 2010 [employer]- All Rights Reserved Assessment & Plan - Diagnosis (1) Wound infection following section, Is this a current diagnosis for this admission?: Yes - Plan Summary Plan Summary: continue antibiotics plan to d/c in am if stable
[2018-09-22] MEDS: CLINDAMYCIN 900 MG/D5W RTU 900 MG/50 ML RTUPB IV SCH ×3 (03:20→18:02)
[2018-09-22] MEDS ORDERED: CLINDAMYCIN 900 MG/D5W RTU 900 MG/50 ML RTUPB IV SCH (06:00)
[2018-09-22] MEDS: IBUPROFEN 800 MG TABLET PO SCH ×3 (06:50→17:47)
[2018-09-22] MEDS: NIFEDIPINE 30 MG TAB.ER.24 PO SCH (09:42)
[2018-09-22] MEDS: FERROUS SULFATE 325 MG TABLET PO SCH (09:42)
[2018-09-22] MEDS: LABETALOL HCL 200 MG TABLET PO SCH (09:42)
--- NOTE | 2018-09-22 21:12 | PDOC PROGRESS REPORT ---
Subjective Progress Note for:: 09/22/18 Subjective:: wound infection/seroma Reason For Visit: SECTION Physical Exam - Physical Exam Vital Signs: Temp Pulse Resp BP Pulse Ox 98.4 F 96 18 150/83 H 99 09/22/18 15:45 09/22/18 15:45 09/22/18 15:45 09/22/18 15:45 09/22/18 15:45 Intake & Output 09/21/18 09/22/18 09/23/18 06:59 06:59 06:59 Intake Total 2950 1340 71 Output Total 200 Balance 2950 1140 71 Weight 108.8 kg 108.9 kg General appearance: PRESENT: no acute distress, well-developed, well-nourished Head exam: PRESENT: atraumatic, normocephalic Neck exam: PRESENT: full ROM. ABSENT: carotid bruit, JVD, lymphadenopathy, thyromegaly Respiratory exam: PRESENT: clear to auscultation aleksandar, symmetrical, unlabored Cardiovascular exam: PRESENT: RRR. ABSENT: diastolic murmur, rubs, systolic murmur Pulses: PRESENT: normal dorsalis pedis pul, +2 pedal pulses bilateral GI/Abdominal exam: PRESENT: normal bowel sounds, soft, other - incision with draining seroma. does not appear actual infection.. ABSENT: distended, guarding, mass, organolmegaly, rebound, tenderness Extremities exam: PRESENT: full ROM. ABSENT: calf tenderness, clubbing, pedal edema Musculoskeletal exam: PRESENT: ambulatory Neurological exam: PRESENT: alert, awake, oriented to person, oriented to place, oriented to time, oriented to situation, CN II-XII grossly intact. ABSENT: motor sensory deficit Result Laboratory Results: 09/21/18 07:30 09/19/18 20:19 09/19/18 23:30 Abdomen - Incision Site Gram Stain - Final Impressions: Pelvis Ultrasound 09/19/18 20:13 IMPRESSION: Complex fluid collection located within the superficial soft tissues of the pelvic wall. A large abscess is a possibility. copyright 2010 [employer]- All Rights Reserved Status: Imported from PACS Assessment & Plan - Diagnosis (1) Wound infection following section, Is this a current diagnosis for this admission?: Yes Plan: appears to be more likely seroma at this time - wound culture reviewed and due to patients allergies will send home on clindamycin and flagyl, Also will give Diflcuan for yeast if needed. No purulent or malordorous discharge (2) Chronic hypertension affecting Is this a current diagnosis for this admission?: Yes Plan: Currently on Labetalol 200mg BID and Procardia 60mg daily Needs f/u in office on tue or with Dr. Russell - Time Time Spent with patient: 15-24 minutes Smoking Cessation Education: 3 to 10 minutes Medications reviewed and adjusted accordingly: Yes Anticipated discharge: Home Within: within 24 hours - Plan Summary Plan Summary: Discharge to home with f/u in office next week.
--- NOTE | 2018-09-22 21:35 | PDOC DISCHARGE SUMMARY ---
General - Admit/Disc Date/PCP Admission Date/Primary Care Provider: 09/20/18 01:19 GALE COLLIER MD Discharge Date: 09/22/18 - Discharge Diagnosis (1) Wound infection following section, Is this a current diagnosis for this admission?: Yes Summary: admitted on for C/S wound infection. Rec'd clindamycin until today when IV infiltrated. Normal WBC count and wound draining non purulent material. Discharge home on po abx (2) Chronic hypertension affecting Is this a current diagnosis for this admission?: Yes Summary: Labetalol and Procardia dosing optimized - Additional Information Resuscitation Status: Full Code - a Discharge Diet: As Tolerated Discharge Activity: Activity As Tolerated, No Driving - on narcotics, Other - Pelvic rest Prescriptions: Oxycodone HCl/Acetaminophen [Percocet 5-325 mg Tablet] 1 tab PO Q6HP PRN 10 Days #30 tablet PRN Reason: Clindamycin HCl 300 mg PO Q6 14 Days #60 capsule Fluconazole [Diflucan] 150 mg PO ONCE PRN 2 Days #2 tablet PRN Reason: Ibuprofen [Motrin 800 mg Tablet] 800 mg PO Q8 30 Days #90 tablet Labetalol HCl [Normodyne 200 mg Tablet] 200 mg PO BID 30 Days #60 tablet Metronidazole [Flagyl 500 mg Tablet] 500 mg PO BID 14 Days #28 tablet Nifedipine [Procardia XL 30 mg Tablet] 60 mg PO DAILY 30 Days #30 tab.er.24 Home Medications: Albuterol Sulfate [Albuterol Sulfate 2.5mg/3 mL] 2 puff IH PRN PRN 03/19/12 No122/Iron/Folic Acid [ Multi Tablet] 1 each PO DAILY 05/25/18 Ferrous Sulfate [Iron] 1 tab PO DAILY 09/07/18 Clindamycin HCl 300 mg PO Q6 14 Days #60 capsule 09/22/18 Fluconazole [Diflucan] 150 mg PO ONCE PRN 2 Days #2 tablet 09/22/18 Ibuprofen [Motrin 800 mg Tablet] 800 mg PO Q8 30 Days #90 tablet 09/22/18 Labetalol HCl [Normodyne 200 mg Tablet] 200 mg PO BID 30 Days #60 tablet 09/22/18 Metronidazole [Flagyl 500 mg Tablet] 500 mg PO BID 14 Days #28 tablet 09/22/18 Nifedipine [Procardia XL 30 mg Tablet] 60 mg PO DAILY 30 Days #30 tab.er.24 09/22/18 Oxycodone HCl/Acetaminophen [Percocet 5-325 mg Tablet] 1 tab PO Q6HP PRN 10 Days #30 tablet 09/22/18 History of Present Illness Patient complains of: wound draining and increased pain History of Present Illness: FOX FERRIS is a 32 year old female s/p C/S on 09/07 presented with draining from wound. Hospital Course Hospital Course: Admitted for IV Abx, Blood cultures negative and would cx done. Now s/p 3 days of IV abx and ok to discharge. Never had elevated WBC count. Ok to discharge home. Physical Exam - Physical Exam Vital Signs: Temp Pulse Resp BP Pulse Ox 98.4 F 96 18 150/83 H 99 09/22/18 15:45 09/22/18 15:45 09/22/18 15:45 09/22/18 15:45 09/22/18 15:45 Intake & Output 09/21/18 09/22/18 09/23/18 06:59 06:59 06:59 Intake Total 2950 1340 71 Output Total 200 Balance 2950 1140 71 Weight 108.8 kg 108.9 kg General appearance: PRESENT: no acute distress, well-developed, well-nourished Head exam: PRESENT: atraumatic, normocephalic Respiratory exam: PRESENT: clear to auscultation aleksandar, symmetrical, unlabored Cardiovascular exam: PRESENT: RRR. ABSENT: diastolic murmur, rubs, systolic murmur Pulses: PRESENT: normal dorsalis pedis pul, +2 pedal pulses bilateral Vascular exam: PRESENT: normal capillary refill GI/Abdominal exam: PRESENT: normal bowel sounds, soft, other - wound draining serous fluid.. ABSENT: distended, guarding, mass, organolmegaly, rebound, tenderness Rectal exam: PRESENT: deferred Extremities exam: PRESENT: full ROM. ABSENT: calf tenderness, clubbing, pedal edema Neurological exam: PRESENT: alert, awake, oriented to person, oriented to place, oriented to time, oriented to situation, CN II-XII grossly intact. ABSENT: motor sensory deficit Psychiatric exam: PRESENT: appropriate affect, normal mood. ABSENT: homicidal ideation, suicidal ideation Skin exam: PRESENT: dry, intact, warm. ABSENT: cyanosis, rash Result Laboratory Results: 09/21/18 07:30 09/19/18 20:19 09/19/18 23:30 Abdomen - Incision Site Gram Stain - Final Impressions: Pelvis Ultrasound 09/19/18 20:13 IMPRESSION: Complex fluid collection located within the superficial soft tissues of the pelvic wall. A large abscess is a possibility. copyright 2010 [employer]- All Rights Reserved Status: Imported from PACS Acute Heart Failure - Is this a Heart Failure Patient?: No
[2018-09-22 21:48] VITALS: BP 134/85
== END 2018-09-22 22:33 | disposition home or self-care (01) | DRG 776 ==
LOC: ER 19:52 → OBSVTOIN 09-20 01:19 → EH 09-20 01:19 → 2N 09-20 02:50
PROVIDERS: ADMIT Obstetrics & Gynecology; ATTEND Obstetrics & Gynecology
DX: O86.00 Infection of obstetric surgical wound, unspecified (principal); O10.03 Pre-existing essential hypertension complicating the puerperium; Z88.6 Allergy status to analgesic agent; Z88.0 Allergy status to penicillin; Z91.013 Allergy to seafood
CPT/HCPCS: 36415; 76857; 80053; 81001; 85025; 87040; 87070; 87075; 87077; 87186; 87205; 96365; 96374; 96375; 99285; J0360; J2270; J2405; J3490

== ENCOUNTER → 2019-11-16 | Outpatient (CLI) | payer MEDICAID ==
--- NOTE | 2019-11-16 10:30 | ER RDC ASSESSMENT REPORT ---
Intake - In the Last 14 days Have you traveled outside [place]?: No Have you been in close contact with someone CONFIRMED: Yes Worked in Healthcare?: Yes - Symptoms Subjective Fever([place] feverish): Yes Chills: No Muscule Aches: No Runny Nose: No Sore Throat: No Cough (New or worsening chronic cough): Yes Shortness of breath: No Nausea or Vomiting: Yes Headache: No Abdominal Pain: No Diarrhea(3 or more loose stools in last 24 hours): No - Do you have any of the following Chronic lung disease: Asthma or emphysema or COPD: Yes Cystic Fibrosis: No Diabetes: No High Blood Pressure: Yes Cardiovascular Disease: Yes Chronic Kidney Disease: No Chronic Liver Disease: No Chronic blood disorder like Sickle Cell Disease: No Weak immune system due to disease or medication: No Neurologic condition that limits movement: No Developmental delay - Moderate to Severe: No Recent (within past 2 weeks) or current : No - Objective Temperature: 97.3 F Pulse Rate: 83 Respiratory Rate: 18 Blood Pressure: 179/98 - did not take BP meds yet today O2 Sat by Pulse Oximetry: 97 Objective: Given above, testing performed: strep, flu, covid Disposition: Home; Selfcare General - General Stated Complaint: low grade fever, nausea, cough Time Seen by Provider: 11/16/19 10:00 Mode of Arrival: Ambulatory Information source: Patient - HPI Notes: 34-year-old female presents to [facility] clinic for COVID-19 testing. 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 Unknown contact with, positive individuals. Onset of symptoms 11/12/2019. She reports on Tuesday she was experiencing nausea, cough, fever with a T-max of 100.0. She states the symptoms have pretty much resolved at this point in time. She denies any shortness of breath, chills, myalgia, runny nose, sore throat, shortness of breath, headache, abdominal pain or diarrhea. Elevated BP noted at visit but patient has not taken her BP medications today. - Related Data Allergies/Adverse Reactions: codeine phosphate [From Codeine Phosphate Soluble] Allergy (Intermediate, Verified 09/16/18 09:02) Hives penicillin V potassium [From Pen-Vee K] Allergy (Intermediate, Verified 09/16/18 09:02) Hives codeine [Codeine] Allergy (Unknown, Verified 09/16/18 09:02) Penicillins Allergy (Unknown, Verified 09/16/18 09:02) shellfish derived Allergy (Unknown, Verified 09/16/18 09:02) Difficulty breathing Past Medical History - General Information source: Patient - Social History Smoking Status: Never Smoker Family History: Reviewed & Not Pertinent - Past Medical History Cardiac Medical History: Reports: Hx Hypertension Pulmonary Medical History: Reports: Hx Asthma, Hx Pneumonia EENT Medical History: Reports: None Neurological Medical History: Reports: None Endocrine Medical History: Reports: None Renal/ Medical History: Reports: None. Denies: Hx Peritoneal Dialysis Malignancy Medical History: Reports: None GI Medical History: Reports: None Musculoskeletal Medical History: Reports None Skin Medical History: Reports None Psychiatric Medical History: Reports: None Denies: Hx Depression Traumatic Medical History: Reports: None Infectious Medical History: Reports: None Past Surgical History: Reports: Hx Section Physical Exam - General General appearance: Appears well, Alert In distress: None Notes: PHYSICAL EXAMINATION: GENERAL: Well-appearing and in no acute distress. HEAD: Atraumatic, normocephalic. EYES: sclera anicteric, conjunctiva are normal. ENT: nares patent. Moist mucous membranes. NECK: Normal range of motion, supple without lymphadenopathy. LUNGS: No increased work of breathing. Lung sounds CTAB and equal. No wheezes rales or rhonchi. HEART: Regular rate and rhythm without murmurs. ABDOMEN: Soft, nontender, normal bowel sounds, no guarding. EXTREMITIES: Normal range of motion, no pitting edema. No cyanosis. NEUROLOGICAL: A&O x 3. Normal speech. PSYCH: Normal mood, normal affect. SKIN: Warm, Dry, normal turgor, no rashes or lesions noted Patient Education/Counseling Counseling/Education: Patient presents with symptoms associated with possible Covid 19 infection. Patient does not have emergency worrying symptoms such as difficulty breathing, shortness of breath, chest pain, pressure, confusion or cyanosis. Patient appears suitable for discharge as vital signs are stable and patient is nontoxic in appearance. Good return precautions have been discussed with patient, patient verbalized understanding and is agreeable with discharge plan of care at this time. Guidance for worsening S/SX: As a person under investigation for Covid 19, the [facility] and Human Services, division of public health advises you to adhere to the following guidance until your test results are reported to you. If your test result is positive, you will receive additional information from your provider and your local health department at that time. Remain at home until you are cleared by the health provider or public health authorities. Keep a log of visitors to your home, notify any visitors to your home of your isolation status. If you plan to move to a new address or leave the county, notify the local health department in your County. Call your doctor or seek care if you have an urgent medical need. Before seeking medical care, call ahead to get instructions from the provider before arriving at the medical office clinic or hospital. Notify them that you are being tested for the virus that causes Covid 19 so that arrangements can be made, as necessary, to prevent transmission to others in the healthcare setting. Next, notify the local health department in your county. If a medical emergency arises and you need to call 911, inform the first responders that you are being tested for the virus that causes Covid 19. Next, notify the local health department in your county. RDC Discharge - Discharge Clinical Impression: Encounter for screening laboratory testing for COVID-19 virus Condition: Good Disposition: Home; Selfcare
[2019-11-16 10:49] VITALS: BP 179/98
[2019-11-16 11:31] LABS: A TYPE INFLUENZA AG NEGATIVE (NEGATIVE); B INFLUENZA AG NEGATIVE (NEGATIVE)
== END ==
LOC: RDC 09:49
PROVIDERS: ATTEND Registered Nurse
DX: Z20.828 Contact with and (suspected) exposure to other viral communicable diseases (principal); R50.9 Fever, unspecified; R05 Cough; R11.0 Nausea; I10 Essential (primary) hypertension; Z88.0 Allergy status to penicillin; Z88.6 Allergy status to analgesic agent; Z91.013 Allergy to seafood
CPT/HCPCS: 87070; 87880; 87635; 87804; C9803; 99201; 99211